=== PATIENT | male | born 1945 | race Caucasian/White ===

== ENCOUNTER 2019-07-06 16:23 | Emergency (ER) | payer MEDICARE, OTHER ==
[2019-07-06] MEDS ORDERED: Ciprofloxacin 500 MG Tab PO ONE (16:24)
[2019-07-06 17:16] VITALS: PULSE 80
[2019-07-06] MEDS: Lidocaine 2% Jelly 10 ML Urojet MUCMEM ONE (17:19)
[2019-07-06 18:03] LABS: ANION GAP 14.2
--- NOTE | 2019-07-06 18:03 | EDM.PDOC ---
Scribed by Kathi Carlisle 07/06/19 [id number] for Miguel Angel Arboleda PA ED HPI GENERAL MEDICAL PROBLEM - General Chief Complaint: Genitourinary Problem Stated Complaint: GENITOURINARY PROBLEM Time Seen by Provider: 07/06/19 17:05 Source of Information: Reports: Patient, RN, RN Notes Reviewed History Limitations: Reports: No Limitations - History of Present Illness INITIAL COMMENTS - FREE TEXT/NARRATIVE: Patient presents to ER with lower abdominal pain that started this A.M. with increased pressure. He has been unable to urinate today. 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 Numerous treatments after radiation to stop bladder and bowel blood loss. Onset: Today Duration: Constant Location: Reports: Other (bladder) Quality: Reports: Ache Severity: Moderate Improves with: Reports: None Worsens with: Reports: None Associated Symptoms: Reports: No Other Symptoms Bladder Pain Score (Numeric/FACES): 8 - Related Data Allergies Allergy/AdvReac Type Severity Reaction Status Date / Time amoxicillin Allergy Blisters Verified 07/06/19 17:09 Penicillins Allergy Blisters Verified 07/06/19 17:09 Home Meds: Home Meds Simvastatin 20 mg PO BEDTIME 02/19/16 [History] Ascorbic Acid [Vitamin C] 1,000 mg PO DAILY 06/08/18 [History] Calcium Carbonate [Calcium] 600 mg PO DAILY 06/08/18 [History] Calcium Carbonate/Vitamin D3 [Calcium 600 + Vit D 200] 600 tab PO BEDTIME [History] Cholecalciferol (Vitamin D3) [Vitamin D] 800 units PO DAILY 06/08/18 [History] Cranberry 4,200 mg PO DAILY 06/08/18 [History] Magnesium 500 mg PO DAILY 06/08/18 [History] Vitamin E 1,000 unit PO DAILY 06/08/18 [History] Acetaminophen 1,000 mg PO .PRN 07/02/18 [History] Hydrocodone/Acetaminophen [[place] 5-325 Tablet] 5 - 325 mg PO TID PRN 07/02/18 [ History] Sildenafil Citrate [Sildenafil] 100 mg PO .PRN PRN 07/02/18 [History] Opium/Belladonna Alkaloids [Belladonna-Opium 16.2-60 Supp] 1 each RC BID PRN # 30 supp.rect 03/09/19 [Rx] Cholecalciferol (Vitamin D3) [Vitamin D3] 5,000 units PO DAILY 07/06/19 [History ] Docusate Sodium 100 mg PO DAILY 07/06/19 [History] Enzalutamide [Xtandi] 160 mg PO DAILY 07/06/19 [History] Ferrous Gluconate [Fergon] 270 mg PO BID 07/06/19 [History] Sertraline [Zoloft] 50 mg PO DAILY 07/06/19 [History] Past Medical History HEENT History: Reports: Impaired Vision Other HEENT History: glasses Cardiovascular History: Reports: Hypertension Other Cardiovascular History: LVH Respiratory History: Reports: None Gastrointestinal History: Reports: Diverticulosis, Hemorrhoids Genitourinary History: Reports: Other (See Below) Other Genitourinary History: cyst on kidneys Musculoskeletal History: Reports: Other (See Below) Other Musculoskeletal History: HX OF R WRIST FRACTURE. Osseous metastasis, right pubic ramus. Neurological History: Reports: None Psychiatric History: Reports: Depression Endocrine/Metabolic History: Reports: None Hematologic History: Reports: None Immunologic History: Reports: None, Immunosuppression Oncologic (Cancer) History: Reports: Bone, Lymphoma, Metastatic, Other (See Below) Other Oncologic History: prostate cancer Dermatologic History: Reports: Other (See Below) Other Dermatologic History: over ears possible skin cancer - Infectious Disease History Infectious Disease History: Reports: Chicken Pox, Mumps - Past Surgical History Head Surgeries/Procedures: Reports: None HEENT Surgical History: Reports: None Other HEENT Surgeries/Procedures: central serrous retanopothy. Cardiovascular Surgical History: Reports: None Respiratory Surgical History: Reports: None GI Surgical History: Reports: Colonoscopy, Other (See Below) Other GI Surgeries/Procedures: ventral hernia Male Surgical History: Reports: Other (See Below) Other Male Surgeries/Procedures: orchiectomy. turp Neurological Surgical History: Reports: None Musculoskeletal Surgical History: Reports: None Oncologic Surgical History: Reports: None Social & Family History - Family History Family Medical History: Noncontributory - Tobacco Use Smoking Status *Q: Never Smoker - Caffeine Use Caffeine Use: Reports: Coffee Other Caffeine Use: 2 cups coffee /day. mountain dew - Recreational Drug Use Recreational Drug Use: No - Living Situation & Occupation Living situation: Reports: , with Spouse Occupation: Retired ED ROS GENERAL - Review of Systems Review Of Systems: Comprehensive ROS is negative, except as noted in HPI. ED EXAM, RENAL/ - Physical Exam Exam: See Below Exam Limited By: No Limitations General Appearance: Alert, WD/WN, No Apparent Distress Eye Exam: Bilateral Eye: EOMI, Normal Inspection, PERRL Ears: Normal External Exam, Normal Canal, Hearing Grossly Normal, Normal TMs Nose: Normal Inspection, Normal Mucosa, No Blood Throat/Mouth: Normal Inspection, Normal Lips, Normal Teeth, Normal Gums, Normal Oropharynx, Normal Voice, No Airway Compromise Head: Atraumatic, Normocephalic Neck: Normal Inspection, Supple, Non-Tender, Full Range of Motion Respiratory/Chest: No Respiratory Distress, Lungs Clear, Normal Breath Sounds, No Accessory Muscle Use, Chest Non-Tender Cardiovascular: Normal Peripheral Pulses, Regular Rate, Rhythm, No Edema, No Gallop, No JVD, No Murmur, No Rub GI/Abdominal: Other (relieved abdominal pain after catheter placed.) (Male) Exam: Deferred Rectal (Males) Exam: Deferred Back Exam: Normal Inspection, Full Range of Motion, NT Extremities: Normal Inspection, Normal Range of Motion, Non-Tender, Normal Capillary Refill, No Pedal Edema Neurological: Alert, Oriented, CN II-XII Intact, Normal Cognition, Normal Gait, Normal Reflexes, No Motor/Sensory Deficits Psychiatric: Normal Affect, Normal Mood Skin Exam: Warm, Dry, Intact, Normal Color, No Rash Lymphatic: No Adenopathy Course - Vital Signs Last Recorded V/S: Last Vital Signs Temp 36.4 C 07/06/19 17:09 Pulse 80 07/06/19 17:09 Resp 16 07/06/19 17:09 BP 127/65 07/06/19 18:15 Pulse Ox 97 07/06/19 17:09 - Orders/Labs/Meds Orders: Active Orders 24 hr Category Date Time Status CULTURE URINE [RM] Urgent Lab 07/06/19 17:00 Received Labs: Laboratory Tests 07/06/19 07/06/19 07/06/19 Range/Units 17:00 17:33 17:33 WBC 4.1 L (5.0-10.0) 10^3/uL RBC 2.65 L (4.6-6.2) 10^6/uL Hgb 8.7 L D (14.0-18.0) g/dL Hct 27.7 L (40.0-54.0) % MCV 104.5 H D (80-100) fL MCH 32.8 (27.0-34.0) pg MCHC 31.4 L (33.0-35.0) g/dL Plt Count 235 (150-450) 10^3/uL Neut % (Auto) 77.1 H (42.2-75.2) % Lymph % (Auto) 10.3 L (20.5-50.1) % [place] % (Auto) 9.1 H (2-8) % Eos % (Auto) 2.5 (1.0-3.0) % Baso % (Auto) 1.0 (0.0-1.0) % Sodium 139 (135-145) mmol/L Potassium 4.2 (3.6-5.0) mmol/L Chloride 106 (101-111) mmol/L Carbon Dioxide 23.0 (21.0-31.0) mmol/L Anion Gap 14.2 BUN 28 H (7-18) mg/dL Creatinine 1.3 (0.6-1.3) mg/dL Est Cr Clr Drug Dosing 52.12 mL/min Estimated GFR (MDRD) 54 BUN/Creatinine Ratio 21.53 Glucose 96 (74-105) mg/dL Calcium 9.1 (8.4-10.2) mg/dl Total Bilirubin 0.5 (0.2-1.0) mg/dL AST 19 (10-42) IU/L ALT 13 (10-60) IU/L Alkaline Phosphatase 46 (42-121) IU/L B-Natriuretic Peptide 53 (0-100) pg/ml Total Protein 6.7 (6.7-8.2) g/dl Albumin 3.8 (3.2-5.5) g/dl Globulin 2.9 Albumin/Globulin Ratio 1.31 Urine Color Red (YELLOW) Urine Appearance Turbid (CLEAR) Urine pH 5.5 (5.0-9.0) Ur Specific [place] 1.020 (1.005-1.030) Urine Protein >=300 H (NEGATIVE) Urine Glucose (UA) Negative (NEGATIVE) Urine Ketones 15 H (NEGATIVE) Urine Occult Blood Large H (NEGATIVE) Urine Nitrite Negative (NEGATIVE) Urine Bilirubin Large H (NEGATIVE) Urine Urobilinogen 4.0 H (0.2-1.0) mg/dL Ur Leukocyte Esterase Large H (NEGATIVE) Urine RBC Packed H /HPF Urine WBC Not seen (0-5/HPF) /HPF Ur Epithelial Cells Rare (NOT SEEN) /HPF Urine Bacteria Few (0-FEW/HPF) /HPF Meds: Medications Discontinued Medications Generic Name Dose Route Start Last Admin Trade Name Erin PRN Reason Stop Dose Admin Ciprofloxacin 500 mg 07/06/19 18:23 Ciprofloxacin Hcl PO 07/06/19 18:24 ONETIME ONE Lidocaine HCl 10 ml 07/06/19 16:38 07/06/19 17:19 Xylocaine 2% Jelly MUCMEM 07/06/19 16:39 10 ml ONETIME ONE Administration Departure - Departure Time of Disposition: 18:30 Disposition: Home, Self-Care 01 Clinical Impression: UTI, Urinary tract infectious disease, Urinary (tract) obstruction - Discharge Information *PRESCRIPTION DRUG MONITORING PROGRAM REVIEWED*: Not Applicable *COPY OF PRESCRIPTION DRUG MONITORING REPORT IN PATIENT JALIL: Not Applicable Instructions: Urinary Tract Infection, Adult, [id number] Forms: ED Department Discharge Care Plan Goals: The patient was advised of the examination and lab results during the visit. A catheter was placed while the patient was in the ED. The patient should keep the catheter in place for the next 24 hours. The patient was given an oral dose of Cipro while in the ED. The patient was discharged with a dose of Cipro (500 mg) to take 1 by mouth in the morning and a script for Cipro (500 mg) #10 to take 1 by mouth 2 times per day. If the patient has any additional symptoms or concerns, the patient should follow-up with her primary care facility or return to the emergency department. Sepsis Event Note - Evaluation Sepsis Screening Result: No Definite Risk - Focused Exam Vital Signs: Vital Signs Temp Pulse Resp BP Pulse Ox 07/06/19 18:15 127/65 07/06/19 17:09 36.4 C 80 16 132/66 97 Date Exam was Performed: 07/06/19 Time Exam was Performed: 18:26 - My Orders Last 24 Hours: My Active Orders 07/06/19 17:00 CULTURE URINE [RM] Urgent - Assessment/Plan Last 24 Hours: My Active Orders 07/06/19 17:00 CULTURE URINE [RM] Urgent I have read and agree with the documentation that has been completed regarding this visit. By signing this record, I attest that the documentation was completed in my physical presence and is an accurate record of the encounter.
[2019-07-06 18:16] VITALS: BP 127/65
[2019-07-06] MEDS: Ciprofloxacin 500 MG Tab ONE (18:52)
[2019-07-06] MEDS: Ciprofloxacin 500 MG Tab PO ONE (18:53)
== END 2019-07-06 18:55 | disposition home or self-care (01) ==
LOC: DL.ED 16:23
DX: N39.0 Urinary tract infection, site not specified (principal); N13.9 Obstructive and reflux uropathy, unspecified; I10 Essential (primary) hypertension; F32.9 Major depressive disorder, single episode, unspecified; Z88.1 Allergy status to other antibiotic agents; Z88.0 Allergy status to penicillin; Z79.899 Other long term (current) drug therapy
CPT/HCPCS: 36415; 51700; 51798; 80053; 81001; 83880; 85025; 87086; 99284; A9270

== ENCOUNTER 2019-07-07 06:18 | Emergency (ER) | payer MEDICARE, OTHER ==
[2019-07-07] MEDS ORDERED: Lidocaine 2% Jelly 10 ML Urojet MUCMEM ONE (06:28)
[2019-07-07 06:32] VITALS: BP 135/83; PULSE 71
--- NOTE | 2019-07-07 06:45 | EDM.PDOC ---
ED HPI GENERAL MEDICAL PROBLEM - General Stated Complaint: CANT PEE Time Seen by Provider: 07/07/19 06:43 Source of Information: Reports: Patient History Limitations: Reports: No Limitations - History of Present Illness INITIAL COMMENTS - FREE TEXT/NARRATIVE: was here yesterday for same, unable to urinate. - Related Data Allergies Allergy/AdvReac Type Severity Reaction Status Date / Time amoxicillin Allergy Blisters Verified 07/07/19 07:02 Penicillins Allergy Blisters Verified 07/07/19 07:02 Home Meds: Home Meds Simvastatin 20 mg PO BEDTIME 02/19/16 [History] Ascorbic Acid [Vitamin C] 1,000 mg PO DAILY 06/08/18 [History] Calcium Carbonate [Calcium] 600 mg PO DAILY 06/08/18 [History] Calcium Carbonate/Vitamin D3 [Calcium 600 + Vit D 200] 600 tab PO BEDTIME [History] Cholecalciferol (Vitamin D3) [Vitamin D] 800 units PO DAILY 06/08/18 [History] Cranberry 4,200 mg PO DAILY 06/08/18 [History] Magnesium 500 mg PO DAILY 06/08/18 [History] Vitamin E 1,000 unit PO DAILY 06/08/18 [History] Acetaminophen 1,000 mg PO .PRN 07/02/18 [History] Hydrocodone/Acetaminophen [[place] 5-325 Tablet] 5 - 325 mg PO TID PRN 07/02/18 [ History] Sildenafil Citrate [Sildenafil] 100 mg PO .PRN PRN 07/02/18 [History] Opium/Belladonna Alkaloids [Belladonna-Opium 16.2-60 Supp] 1 each RC BID PRN # 30 supp.rect 03/09/19 [Rx] Cholecalciferol (Vitamin D3) [Vitamin D3] 5,000 units PO DAILY 07/06/19 [History ] Docusate Sodium 100 mg PO DAILY 07/06/19 [History] Enzalutamide [Xtandi] 160 mg PO DAILY 07/06/19 [History] Ferrous Gluconate [Fergon] 270 mg PO BID 07/06/19 [History] Sertraline [Zoloft] 50 mg PO DAILY 07/06/19 [History] Past Medical History HEENT History: Reports: Impaired Vision Other HEENT History: glasses Cardiovascular History: Reports: Hypertension Other Cardiovascular History: LVH Respiratory History: Reports: None Gastrointestinal History: Reports: Diverticulosis, Hemorrhoids Genitourinary History: Reports: Other (See Below) Other Genitourinary History: cyst on kidneys Musculoskeletal History: Reports: Other (See Below) Other Musculoskeletal History: HX OF R WRIST FRACTURE. Osseous metastasis, right pubic ramus. Neurological History: Reports: None Psychiatric History: Reports: Depression Endocrine/Metabolic History: Reports: None Hematologic History: Reports: None Immunologic History: Reports: None, Immunosuppression Oncologic (Cancer) History: Reports: Bone, Lymphoma, Metastatic, Other (See Below) Other Oncologic History: prostate cancer Dermatologic History: Reports: Other (See Below) Other Dermatologic History: over ears possible skin cancer - Infectious Disease History Infectious Disease History: Reports: Chicken Pox, Mumps - Past Surgical History Head Surgeries/Procedures: Reports: None HEENT Surgical History: Reports: None Other HEENT Surgeries/Procedures: central serrous retanopothy. Cardiovascular Surgical History: Reports: None Respiratory Surgical History: Reports: None GI Surgical History: Reports: Colonoscopy, Other (See Below) Other GI Surgeries/Procedures: ventral hernia Male Surgical History: Reports: Other (See Below) Other Male Surgeries/Procedures: orchiectomy. turp Neurological Surgical History: Reports: None Musculoskeletal Surgical History: Reports: None Oncologic Surgical History: Reports: None Social & Family History - Family History Family Medical History: Noncontributory - Caffeine Use Caffeine Use: Reports: Coffee Other Caffeine Use: 2 cups coffee /day. [facility] - Living Situation & Occupation Living situation: Reports: , with Spouse Occupation: Retired ED ROS GENERAL - Review of Systems Review Of Systems: Comprehensive ROS is negative, except as noted in HPI. ED EXAM, RENAL/ - Physical Exam Exam: See Below Exam Limited By: No Limitations General Appearance: Alert, WD/WN, Mild Distress, Other (discomfort). No: Active Emesis Ears: Hearing Grossly Normal Throat/Mouth: Normal Voice, No Airway Compromise Head: Atraumatic Neck: Non-Tender, Full Range of Motion Respiratory/Chest: No Respiratory Distress Cardiovascular: Regular Rate, Rhythm GI/Abdominal: Soft, Other (suprapubic discomfort) Neurological: Alert, Oriented, Normal Cognition, No Motor/Sensory Deficits, Confused Psychiatric: Tearful Skin Exam: Warm, Dry, Normal Color Lymphatic: No Adenopathy Course - Vital Signs Last Recorded V/S: Last Vital Signs Temp 36.6 C 07/07/19 06:30 Pulse 71 07/07/19 06:30 Resp 16 07/07/19 06:30 BP 135/83 07/07/19 06:30 Pulse Ox 97 07/07/19 06:30 - Orders/Labs/Meds Meds: Medications Discontinued Medications Generic Name Dose Route Start Last Admin Trade Name Erin PRN Reason Stop Dose Admin Lidocaine HCl 10 ml 07/07/19 06:28 Xylocaine 2% Jelly MUCMEM 07/07/19 06:29 ONETIME ONE Departure - Departure Time of Disposition: 07:09 Disposition: Home, Self-Care 01 Condition: Good Clinical Impression: Urinary (tract) obstruction, Retention of urine - Discharge Information Forms: ED Department Discharge Additional Instructions: rx given; percocet 5/325mg qid x 12 Sepsis Event Note - Evaluation Sepsis Screening Result: No Definite Risk - Focused Exam Vital Signs: Vital Signs Temp Pulse Resp BP Pulse Ox 07/07/19 06:30 36.6 C 71 16 135/83 97 Date Exam was Performed: 07/07/19 Time Exam was Performed: 07:09
== END 2019-07-07 07:22 | disposition home or self-care (01) ==
LOC: DL.ED 06:18
DX: R33.9 Retention of urine, unspecified (principal); N13.8 Other obstructive and reflux uropathy; I10 Essential (primary) hypertension; F32.9 Major depressive disorder, single episode, unspecified; Z88.0 Allergy status to penicillin; Z79.899 Other long term (current) drug therapy; Z85.79 Personal history of other malignant neoplasms of lymphoid, hematopoietic and related tissues; Z85.830 Personal history of malignant neoplasm of bone
CPT/HCPCS: 51702; 99283-25

== ENCOUNTER 2020-01-18 05:58 | Emergency (ER) | payer MEDICARE, OTHER ==
[2020-01-18] MEDS ORDERED: Ciprofloxacin 500 MG Tab PO ONE (05:59)
[2020-01-18] MEDS ORDERED: Lidocaine 2% Jelly 10 ML Urojet MUCMEM ONE (06:03)
[2020-01-18 06:09] VITALS: BP 151/78; PULSE 67
[2020-01-18 06:48] LABS: ANION GAP 12.2 mEq/L (7-13)
--- NOTE | 2020-01-18 06:53 | EDM.PDOC ---
ED HPI GENERAL MEDICAL PROBLEM - General Chief Complaint: Genitourinary Problem Stated Complaint: UNABLE TO PEE Time Seen by Provider: 01/18/20 06:15 Source of Information: Reports: Patient, RN History Limitations: Reports: No Limitations - History of Present Illness INITIAL COMMENTS - FREE TEXT/NARRATIVE: ED with report of unable to void since 10pm last martha. Feel surge. Hx prostate CA with radiation. Has had catheters numerous times since surgery. Denies fever or chills. Chronic incontinence since radiation. Noticed blood in last week but has improved but not completely resolved. Nonausea or vomiting. Has required indwelling catheter for a couple of days. - Related Data Allergies Allergy/AdvReac Type Severity Reaction Status Date / Time amoxicillin Allergy Blisters Verified 01/18/20 06:03 Penicillins Allergy Blisters Verified 01/18/20 06:03 Home Meds: Home Meds Simvastatin 20 mg PO BEDTIME 02/19/16 [History] Ascorbic Acid [Vitamin C] 1,000 mg PO DAILY 06/08/18 [History] Calcium Carbonate [Calcium] 600 mg PO DAILY 06/08/18 [History] Calcium Carbonate/Vitamin D3 [Calcium 600 + Vit D 200] 600 tab PO BEDTIME 06/08/18 [History] Cholecalciferol (Vitamin D3) [Vitamin D] 800 units PO DAILY 06/08/18 [History] Cranberry 4,200 mg PO DAILY 06/08/18 [History] Magnesium 500 mg PO DAILY 06/08/18 [History] Vitamin E 1,000 unit PO DAILY 06/08/18 [History] Acetaminophen 1,000 mg PO .PRN 07/02/18 [History] Hydrocodone/Acetaminophen [[place] 5-325 Tablet] 5 - 325 mg PO TID PRN 07/02/18 [History] Sildenafil Citrate [Sildenafil] 100 mg PO .PRN PRN 07/02/18 [History] Opium/Belladonna Alkaloids [Belladonna-Opium 16.2-60 Supp] 1 each RC BID PRN #30 supp.rect 03/09/19 [Rx] Cholecalciferol (Vitamin D3) [Vitamin D3] 5,000 units PO DAILY 07/06/19 [History] Docusate Sodium 100 mg PO DAILY 07/06/19 [History] Enzalutamide [Xtandi] 160 mg PO DAILY 07/06/19 [History] Ferrous Gluconate [Fergon] 270 mg PO BID 07/06/19 [History] Sertraline [Zoloft] 50 mg PO DAILY 07/06/19 [History] Past Medical History HEENT History: Reports: Impaired Vision Other HEENT History: glasses Cardiovascular History: Reports: Hypertension Other Cardiovascular History: LVH Respiratory History: Reports: None Gastrointestinal History: Reports: Diverticulosis, Hemorrhoids Genitourinary History: Reports: Other (See Below) Other Genitourinary History: cyst on kidneys Musculoskeletal History: Reports: Other (See Below) Other Musculoskeletal History: HX OF R WRIST FRACTURE. Osseous metastasis, right pubic ramus. Neurological History: Reports: None Psychiatric History: Reports: Depression Endocrine/Metabolic History: Reports: None Hematologic History: Reports: None Immunologic History: Reports: None, Immunosuppression Oncologic (Cancer) History: Reports: Bone, Lymphoma, Metastatic, Other (See Below) Other Oncologic History: prostate cancer Dermatologic History: Reports: Other (See Below) Other Dermatologic History: over ears possible skin cancer - Infectious Disease History Infectious Disease History: Reports: Chicken Pox, Mumps - Past Surgical History Head Surgeries/Procedures: Reports: None HEENT Surgical History: Reports: None Other HEENT Surgeries/Procedures: central serrous retanopothy. Cardiovascular Surgical History: Reports: None Respiratory Surgical History: Reports: None GI Surgical History: Reports: Colonoscopy, Other (See Below) Other GI Surgeries/Procedures: ventral hernia Male Surgical History: Reports: Other (See Below) Other Male Surgeries/Procedures: orchiectomy. turp Neurological Surgical History: Reports: None Musculoskeletal Surgical History: Reports: None Oncologic Surgical History: Reports: None Social & Family History - Family History Family Medical History: Noncontributory - Tobacco Use Smoking Status *Q: Never Smoker Second Hand Smoke Exposure: No - Caffeine Use Caffeine Use: Reports: Coffee Other Caffeine Use: 2 cups coffee /day. mountain dew - Recreational Drug Use Recreational Drug Use: No - Living Situation & Occupation Living situation: Reports: , with Spouse Occupation: Retired ED ROS GENERAL - Review of Systems Review Of Systems: Comprehensive ROS is negative, except as noted in HPI. ED EXAM, RENAL/ - Physical Exam Exam: See Below Exam Limited By: No Limitations General Appearance: Alert, Mild Distress Eye Exam: Bilateral Eye: EOMI Ears: Normal External Exam Nose: Normal Inspection Throat/Mouth: Normal Inspection, Normal Oropharynx Head: Atraumatic, Normocephalic Neck: Normal Inspection Respiratory/Chest: No Respiratory Distress, Lungs Clear Cardiovascular: Regular Rate, Rhythm GI/Abdominal: Soft, Non-Tender, No Organomegaly, No Distention, No Abnormal Bruit Back Exam: Normal Inspection Extremities: Normal Inspection Neurological: Alert, Oriented Psychiatric: Normal Affect Skin Exam: Warm, Dry, Intact Course - Vital Signs Last Recorded V/S: Last Vital Signs Temp 97.4 F 01/18/20 06:05 Pulse 67 01/18/20 06:05 Resp 16 01/18/20 06:05 BP 151/78 H 01/18/20 06:05 Pulse Ox 97 01/18/20 06:05 - Orders/Labs/Meds Labs: Laboratory Tests 01/18/20 01/18/20 01/18/20 Range/Units 06:23 06:23 06:40 WBC 2.8 L (5.0-10.0) 10^3/uL RBC 3.18 L (4.6-6.2) 10^6/uL Hgb 10.2 L D (14.0-18.0) g/dL Hct 32.2 L (40.0-54.0) % MCV 101.3 H D (80-100) fL MCH 32.1 (27.0-34.0) pg MCHC 31.7 L (33.0-35.0) g/dL Plt Count 238 (150-450) 10^3/uL Neut % (Auto) 66.0 (42.2-75.2) % Lymph % (Auto) 17.0 L (20.5-50.1) % [place] % (Auto) 11.3 H (2-8) % Eos % (Auto) 5.3 H (1.0-3.0) % Baso % (Auto) 0.4 (0.0-1.0) % Sodium 141 (136-145) mmol/L Potassium 4.2 (3.5-5.1) mmol/L Chloride 107 (98-107) mmol/L Carbon Dioxide 26 (21-32) mmol/L Anion Gap 12.2 (7-13) mEq/L BUN 29 H (7-18) mg/dL Creatinine 1.42 H (0.70-1.30) mg/dL Est Cr Clr Drug Dosing 47.02 mL/min Estimated GFR (MDRD) 49 BUN/Creatinine Ratio 20.4 (No establ ref range) Glucose 102 H (74-99) mg/dL Calcium 8.9 (8.5-10.1) mg/dL Total Bilirubin 0.3 (0.2-1.0) mg/dL AST 15 (15-37) U/L ALT 19 (16-63) U/L Alkaline Phosphatase 53 (46-116) U/L Total Protein 6.6 (6.4-8.2) g/dL Albumin 3.3 L (3.4-5.0) g/dL Globulin 3.3 Albumin/Globulin Ratio 1.00 Urine Color Yellow (YELLOW) Urine Appearance Slightly cloudy (CLEAR) Urine pH 5.5 (5.0-9.0) Ur Specific [place] >= 1.030 (1.005-1.030) Urine Protein 100 H (NEGATIVE) Urine Glucose (UA) Negative (NEGATIVE) Urine Ketones Negative (NEGATIVE) Urine Occult Blood Small H (NEGATIVE) Urine Nitrite Negative (NEGATIVE) Urine Bilirubin Negative (NEGATIVE) Urine Urobilinogen 0.2 (0.2-1.0) mg/dL Ur Leukocyte Esterase Negative (NEGATIVE) U Hyaline Cast (Auto) Occasional Urine RBC 30-40 H /HPF Urine WBC 0-5 (0-5/HPF) /HPF Ur Epithelial Cells Rare (NOT SEEN) /HPF Amorphous Sediment Few (NOT SEEN) /HPF Urine Bacteria Few (0-FEW/HPF) /HPF Urine Mucus Few H (NOT SEEN) /LPF Meds: Medications Discontinued Medications Generic Name Dose Route Start Last Admin Trade Name Erin PRN Reason Stop Dose Admin Ciprofloxacin Confirm 01/18/20 07:07 Ciprofloxacin Hcl Administered 01/18/20 07:08 Dose 1,500 mg .ROUTE .STK-MED ONE Lidocaine HCl 10 ml 01/18/20 06:03 01/18/20 06:20 Xylocaine 2% Jelly MUCMEM 01/18/20 06:04 10 ml ONETIME ONE Administration - Re-Assessments/Exams Free Text/Narrative Re-Assessment/Exam: 01/20/20 11:57 Sanchez placed without difficulty by RN. Concentrated urine. Departure - Departure Time of Disposition: 06:58 Disposition: Home, Self-Care 01 Condition: Good Clinical Impression: Urinary retention - Discharge Information *PRESCRIPTION DRUG MONITORING PROGRAM REVIEWED*: No *COPY OF PRESCRIPTION DRUG MONITORING REPORT IN PATIENT JALIL: No Instructions: Indwelling Urinary Catheter Care, Adult Forms: ED Department Discharge Additional Instructions: increase fluids irrigate catheter as needed cipro 500mg twice daily for one week follow up with urologist next week return if fever, chills back pain Sepsis Event Note (ED) - Evaluation Sepsis Screening Result: No Definite Risk
[2020-01-18] MEDS ORDERED: Ciprofloxacin 500 MG Tab ONE (07:07)
== END 2020-01-18 07:20 | disposition home or self-care (01) ==
LOC: DL.ED 05:58
DX: R33.9 Retention of urine, unspecified (principal); I10 Essential (primary) hypertension; Z88.1 Allergy status to other antibiotic agents; Z88.0 Allergy status to penicillin; Z79.899 Other long term (current) drug therapy
CPT/HCPCS: 36415; 51702; 80053; 81001; 85025; 99283; A9270

== ENCOUNTER 2020-06-01 21:23 | Emergency (ER) | payer MEDICARE, OTHER ==
[2020-06-01 21:53] VITALS: BP 121/60; PULSE 90
[2020-06-01 23:59] LABS: CHLORIDE,CL 99 mmol/L (98-107); SODIUM,NA 136 mmol/L (136-145)
[2020-06-02] MEDS ORDERED: Ciprofloxacin 500 MG Tab PO ONE (00:46)
--- NOTE | 2020-06-02 01:00 | EDM.PDOC ---
ED HPI GENERAL MEDICAL PROBLEM - General Chief Complaint: General Stated Complaint: FLU SYMPTOMS Time Seen by Provider: 06/01/20 21:40 Source of Information: Reports: Patient, Family, RN History Limitations: Reports: No Limitations - History of Present Illness INITIAL COMMENTS - FREE TEXT/NARRATIVE: ED with c/o malaise, low grade fevers past week. Hx prostate CA with radiation, Recent ereral stent removed last week. Urine initially bloody with thick [place], clearing now. Utilizing condom cath. Appetite poor. Nausea tonight no vomiting. Did take one zofran at home and nausea improved. Has not been seen by PCP. Renal US scheduled Monday then see specialist on Monday for decreased renal function. Concern for COVID, No known exposure. estimates 20# weight loss in past 2 months. - Related Data Allergies Allergy/AdvReac Type Severity Reaction Status Date / Time amoxicillin Allergy Blisters Verified 01/18/20 06:03 Penicillins Allergy Blisters Verified 01/18/20 06:03 Home Meds: Home Meds Simvastatin 20 mg PO BEDTIME 02/19/16 [History] Ascorbic Acid [Vitamin C] 1,000 mg PO DAILY 06/08/18 [History] Calcium Carbonate [Calcium] 600 mg PO DAILY 06/08/18 [History] Calcium Carbonate/Vitamin D3 [Calcium 600 + Vit D 200] 600 tab PO BEDTIME 06/08/18 [History] Cholecalciferol (Vitamin D3) [Vitamin D] 800 units PO BEDTIME 06/08/18 [History] Cranberry 4,200 mg PO BEDTIME 06/08/18 [History] Magnesium 500 mg PO DAILY 06/08/18 [History] Vitamin E 1,000 unit PO DAILY 06/08/18 [History] Acetaminophen 500 mg PO Q4H PRN 07/02/18 [History] Cholecalciferol (Vitamin D3) [Vitamin D3] 5,000 units PO DAILY 07/06/19 [History] Docusate Sodium 100 mg PO DAILY 07/06/19 [History] Enzalutamide [Xtandi] 160 mg PO BEDTIME 07/06/19 [History] Ferrous Gluconate [Fergon] 324 mg PO DAILY 07/06/19 [History] Sertraline [Zoloft] 75 mg PO DAILY 07/06/19 [History] Denosumab [Xgeva] 120 mg SUBCUT .MONTHLY 01/21/20 [History] Ibuprofen 200 mg PO Q6H PRN 01/21/20 [History] Past Medical History HEENT History: Reports: Impaired Vision Other HEENT History: glasses Cardiovascular History: Reports: Hypertension Other Cardiovascular History: LVH Respiratory History: Reports: None Gastrointestinal History: Reports: Diverticulosis, Hemorrhoids Genitourinary History: Reports: Other (See Below) Other Genitourinary History: cyst on kidneys Musculoskeletal History: Reports: Other (See Below) Other Musculoskeletal History: HX OF R WRIST FRACTURE. Osseous metastasis, right pubic ramus. Neurological History: Reports: None Psychiatric History: Reports: Depression Endocrine/Metabolic History: Reports: None Hematologic History: Reports: None Immunologic History: Reports: Immunosuppression Oncologic (Cancer) History: Reports: Bone, Lymphoma, Metastatic, Other (See Below) Other Oncologic History: prostate cancer Dermatologic History: Reports: Other (See Below) Other Dermatologic History: over ears possible skin cancer - Infectious Disease History Infectious Disease History: Reports: Chicken Pox, Mumps - Past Surgical History Head Surgeries/Procedures: Reports: None HEENT Surgical History: Reports: None Other HEENT Surgeries/Procedures: central serrous retanopothy. Cardiovascular Surgical History: Reports: None Respiratory Surgical History: Reports: None GI Surgical History: Reports: Colonoscopy, Other (See Below) Other GI Surgeries/Procedures: ventral hernia Male Surgical History: Reports: Ureteral Stent, Other (See Below) Other Male Surgeries/Procedures: orchiectomy. turp Neurological Surgical History: Reports: None Musculoskeletal Surgical History: Reports: None Oncologic Surgical History: Reports: None Social & Family History - Family History Family Medical History: No Pertinent Family History - Tobacco Use Tobacco Use Status *Q: Never Tobacco User Second Hand Smoke Exposure: No - Caffeine Use Caffeine Use: Reports: Coffee Other Caffeine Use: 2 cups coffee /day. mountain dew - Recreational Drug Use Recreational Drug Use: No - Living Situation & Occupation Living situation: Reports: , with Spouse Occupation: Retired ED ROS GENERAL - Review of Systems Review Of Systems: Comprehensive ROS is negative, except as noted in HPI. ED EXAM, GENERAL - Physical Exam Exam: See Below Exam Limited By: No Limitations General Appearance: Alert, No Apparent Distress Eye Exam: Bilateral Eye: EOMI Ears: Normal External Exam, Hearing Grossly Normal Nose: Normal Inspection Throat/Mouth: Normal Inspection Head: Atraumatic, Normocephalic Neck: Normal Inspection Respiratory/Chest: No Respiratory Distress, Lungs Clear, Normal Breath Sounds Cardiovascular: Normal Peripheral Pulses, Regular Rate, Rhythm GI/Abdominal: Normal Bowel Sounds, Soft. No: Distended, Guarding, Tender Back Exam: No: CVA Tenderness (L), CVA Tenderness (R) Extremities: Normal Inspection Neurological: Alert, Oriented, Normal Cognition Psychiatric: Normal Affect, Normal Mood Skin Exam: Warm, Dry, Intact, Pallor Course - Vital Signs Last Recorded V/S: Last Vital Signs Temp 97.5 F 06/01/20 21:35 Pulse 90 06/01/20 21:35 Resp 18 06/01/20 21:35 BP 121/60 06/01/20 21:35 Pulse Ox 96 06/01/20 21:35 Orthostatic Blood Pressure [ 131/74 Standing] Orthostatic Blood Pressure [ 116/71 Sitting] Orthostatic Blood Pressure [ 118/64 Supine] - Orders/Labs/Meds Orders: Active Orders 24 hr Category Date Time Status CULTURE URINE [RM] Routine Lab 06/01/20 23:03 Received Isolation [COMM] Routine Oth 06/01/20 21:40 Active Labs: Laboratory Tests 06/01/20 06/01/20 06/01/20 Range/Units 21:50 23:03 23:22 WBC 12.9 H (5.0-10.0) 10^3/uL RBC 3.10 L (4.6-6.2) 10^6/uL Hgb 10.3 L (14.0-18.0) g/dL Hct 30.8 L (40.0-54.0) % MCV 99.4 (80-100) fL MCH 33.2 (27.0-34.0) pg MCHC 33.4 (33.0-35.0) g/dL Plt Count 328 D (150-450) 10^3/uL Neut % (Auto) 93.7 H (42.2-75.2) % Lymph % (Auto) 2.0 L (20.5-50.1) % [place] % (Auto) 4.0 (2-8) % Eos % (Auto) 0.2 L (1.0-3.0) % Baso % (Auto) 0.1 (0.0-1.0) % Sodium (136-145) mmol/L Potassium (3.5-5.1) mmol/L Chloride (98-107) mmol/L Carbon Dioxide (21-32) mmol/L Anion Gap (7-13) mEq/L BUN (7-18) mg/dL Creatinine (0.70-1.30) mg/dL Est Cr Clr Drug Dosing Estimated GFR (MDRD) BUN/Creatinine Ratio (No establ ref range) Glucose (74-99) mg/dL Lactic Acid (0.4-2.0) mmol/L Calcium (8.5-10.1) mg/dL Total Bilirubin (0.2-1.0) mg/dL AST (15-37) U/L ALT (16-63) U/L Alkaline Phosphatase (46-116) U/L C-Reactive Protein (0.0-0.9) mg/dL Total Protein (6.4-8.2) g/dL Albumin (3.4-5.0) g/dL Globulin Albumin/Globulin Ratio Urine Color Felipa (YELLOW) Urine Appearance Cloudy (CLEAR) Urine pH 7.0 (5.0-9.0) Ur Specific [place] 1.025 (1.005-1.030) Urine Protein >=300 H (NEGATIVE) Urine Glucose (UA) Negative (NEGATIVE) Urine Ketones Negative (NEGATIVE) Urine Occult Blood Large H (NEGATIVE) Urine Nitrite Negative (NEGATIVE) Urine Bilirubin Negative (NEGATIVE) Urine Urobilinogen 0.2 (0.2-1.0) mg/dL Ur Leukocyte Esterase Trace H (NEGATIVE) Urine RBC >100 H /HPF Urine WBC 10-20 H (0-5/HPF) /HPF Ur Epithelial Cells Few (NOT SEEN) /HPF Amorphous Sediment Few (NOT SEEN) /HPF Urine Bacteria Few (0-FEW/HPF) /HPF Fine Granular Casts Rare H (NOT SEEN) /LPF Urine Mucus Few H (NOT SEEN) /LPF SARS CoV-2 RNA Rapid NIRALI Negative (NEGATIVE) 06/01/20 06/01/20 Range/Units 23:22 23:22 WBC (5.0-10.0) 10^3/uL RBC (4.6-6.2) 10^6/uL Hgb (14.0-18.0) g/dL Hct (40.0-54.0) % MCV (80-100) fL MCH (27.0-34.0) pg MCHC (33.0-35.0) g/dL Plt Count (150-450) 10^3/uL Neut % (Auto) (42.2-75.2) % Lymph % (Auto) (20.5-50.1) % [place] % (Auto) (2-8) % Eos % (Auto) (1.0-3.0) % Baso % (Auto) (0.0-1.0) % Sodium 136 (136-145) mmol/L Potassium 5.0 (3.5-5.1) mmol/L Chloride 99 (98-107) mmol/L Carbon Dioxide 29 (21-32) mmol/L Anion Gap 13.0 (7-13) mEq/L BUN 28 H (7-18) mg/dL Creatinine 1.62 H (0.70-1.30) mg/dL Est Cr Clr Drug Dosing TNP Estimated GFR (MDRD) 42 BUN/Creatinine Ratio 17.3 (No establ ref range) Glucose 126 H (74-99) mg/dL Lactic Acid 1.0 (0.4-2.0) mmol/L Calcium 9.1 (8.5-10.1) mg/dL Total Bilirubin 0.4 (0.2-1.0) mg/dL AST 11 L (15-37) U/L ALT 16 (16-63) U/L Alkaline Phosphatase 73 (46-116) U/L C-Reactive Protein 31.6 H (0.0-0.9) mg/dL Total Protein 7.4 (6.4-8.2) g/dL Albumin 2.7 L (3.4-5.0) g/dL Globulin 4.7 Albumin/Globulin Ratio 0.57 Urine Color (YELLOW) Urine Appearance (CLEAR) Urine pH (5.0-9.0) Ur Specific [place] (1.005-1.030) Urine Protein (NEGATIVE) Urine Glucose (UA) (NEGATIVE) Urine Ketones (NEGATIVE) Urine Occult Blood (NEGATIVE) Urine Nitrite (NEGATIVE) Urine Bilirubin (NEGATIVE) Urine Urobilinogen (0.2-1.0) mg/dL Ur Leukocyte Esterase (NEGATIVE) Urine RBC /HPF Urine WBC (0-5/HPF) /HPF Ur Epithelial Cells (NOT SEEN) /HPF Amorphous Sediment (NOT SEEN) /HPF Urine Bacteria (0-FEW/HPF) /HPF Fine Granular Casts (NOT SEEN) /LPF Urine Mucus (NOT SEEN) /LPF SARS CoV-2 RNA Rapid NIRALI (NEGATIVE) Meds: Medications Discontinued Medications Generic Name Dose Route Start Last Admin Trade Name Erin PRN Reason Stop Dose Admin Ciprofloxacin 500 mg 06/02/20 00:46 06/02/20 00:52 Ciprofloxacin Hcl PO 06/02/20 00:47 500 mg ONETIME ONE Administration Departure - Departure Time of Disposition: 00:48 Disposition: Home, Self-Care 01 Condition: Good Clinical Impression: UTI, Urinary tract infectious disease - Discharge Information *PRESCRIPTION DRUG MONITORING PROGRAM REVIEWED*: No *COPY OF PRESCRIPTION DRUG MONITORING REPORT IN PATIENT JALIL: No Instructions: Urinary Tract Infection, Adult, [id number] Forms: ED Department Discharge Additional Instructions: cipro 500mg one twice daily increase fluids zofran 4mg ODT every 4 hours as needed for nausea monitor temp tylenol 650mg every 4 hours as needed smaller meals more frequently protein supplements/ calorie boosters Follow up clinic on Monday, sooner if symptoms worsen Sepsis Event Note (ED) - Evaluation Sepsis Screening Result: No Definite Risk - Focused Exam Vital Signs: Vital Signs Temp Pulse Resp BP Pulse Ox 06/01/20 21:35 97.5 F 90 18 121/60 96 - My Orders Last 24 Hours: My Active Orders 06/01/20 21:40 Isolation [COMM] Routine 06/01/20 23:03 CULTURE URINE [RM] Routine - Assessment/Plan Last 24 Hours: My Active Orders 06/01/20 21:40 Isolation [COMM] Routine 06/01/20 23:03 CULTURE URINE [RM] Routine
== END 2020-06-02 00:55 | disposition home or self-care (01) ==
LOC: DL.ED 21:23
DX: N39.0 Urinary tract infection, site not specified (principal); I10 Essential (primary) hypertension; F32.9 Major depressive disorder, single episode, unspecified; Z20.828 Contact with and (suspected) exposure to other viral communicable diseases; Z88.1 Allergy status to other antibiotic agents; Z88.0 Allergy status to penicillin; Z79.899 Other long term (current) drug therapy
CPT/HCPCS: 36415; 80053; 81001; 83605; 85025; 86140; 87086; 87088; 87186; 87804; 99283; A9270; U0002

== ENCOUNTER 2020-08-01 17:07 | Emergency (ER) | payer MEDICARE, OTHER ==
[2020-08-01 18:01] VITALS: BP 170/94; PULSE 76
--- NOTE | 2020-08-01 18:44 | EDM.PDOC ---
<Aleksandr Herzog - Last Filed: 08/01/20 18:51> ED HPI GENERAL MEDICAL PROBLEM - General Chief Complaint: Genitourinary Problem Stated Complaint: UNABLE TO URINATE Time Seen by Provider: 08/01/20 18:37 Source of Information: Reports: Patient, Family, RN History Limitations: Reports: No Limitations - History of Present Illness INITIAL COMMENTS - FREE TEXT/NARRATIVE: 74 y/o M hx of prostate cancer c/o difficulty with urination. Pt states 2 days ago he started passing blood clots and having decreased urine output. Pt c/o supra pubic pain and bladder spasms intermittently. Pt usually has urinary incontinence since his prostate cancer procedures where the seeded his prostate. Pt also reports that the cancer mets to his R hip and he received radiation treatment. As far as he knows he is cancer free at this time and has been for two years. Denies fever, cough, chills, drugs, etoh, cp, sob, abd pn, recent trauma, flank pain. - Related Data Allergies Allergy/AdvReac Type Severity Reaction Status Date / Time amoxicillin Allergy Blisters Verified 08/01/20 18:04 Penicillins Allergy Blisters Verified 08/01/20 18:04 Home Meds: Home Meds Simvastatin 20 mg PO BEDTIME 02/19/16 [History] Ascorbic Acid [Vitamin C] 1,000 mg PO DAILY 06/08/18 [History] Calcium Carbonate [Calcium] 600 mg PO DAILY 06/08/18 [History] Calcium Carbonate/Vitamin D3 [Calcium 600 + Vit D 200] 600 tab PO BEDTIME 06/08/18 [History] Cholecalciferol (Vitamin D3) [Vitamin D] 800 units PO BEDTIME 06/08/18 [History] Acetaminophen 500 mg PO Q4H PRN 07/02/18 [History] Cholecalciferol (Vitamin D3) [Vitamin D3] 5,000 units PO DAILY 07/06/19 [History] Docusate Sodium 100 mg PO DAILY 07/06/19 [History] Enzalutamide [Xtandi] 160 mg PO BEDTIME 07/06/19 [History] Ferrous Gluconate [Fergon] 324 mg PO DAILY 07/06/19 [History] Sertraline [Zoloft] 75 mg PO DAILY 07/06/19 [History] Denosumab [Xgeva] 120 mg SUBCUT .MONTHLY 01/21/20 [History] Cefpodoxime [Vantin] 200 mg PO BID 08/01/20 [History] Losartan [Cozaar] 25 mg PO DAILY 08/01/20 [History] Past Medical History HEENT History: Reports: Impaired Vision Other HEENT History: glasses Cardiovascular History: Reports: Hypertension Other Cardiovascular History: LVH Respiratory History: Reports: None Gastrointestinal History: Reports: Diverticulosis, Hemorrhoids Genitourinary History: Reports: Other (See Below) Other Genitourinary History: cyst on kidneys Musculoskeletal History: Reports: Other (See Below) Other Musculoskeletal History: HX OF R WRIST FRACTURE. Osseous metastasis, right pubic ramus. Neurological History: Reports: None Psychiatric History: Reports: Depression Endocrine/Metabolic History: Reports: None Hematologic History: Reports: None Immunologic History: Reports: Immunosuppression Oncologic (Cancer) History: Reports: Bone, Lymphoma, Metastatic, Other (See Below) Other Oncologic History: prostate cancer Dermatologic History: Reports: Other (See Below) Other Dermatologic History: over ears possible skin cancer - Infectious Disease History Infectious Disease History: Reports: Chicken Pox, Mumps - Past Surgical History Head Surgeries/Procedures: Reports: None HEENT Surgical History: Reports: None Other HEENT Surgeries/Procedures: central serrous retanopothy. Cardiovascular Surgical History: Reports: None Respiratory Surgical History: Reports: None GI Surgical History: Reports: Colonoscopy, Other (See Below) Other GI Surgeries/Procedures: ventral hernia Male Surgical History: Reports: Ureteral Stent, Other (See Below) Other Male Surgeries/Procedures: orchiectomy. turp Neurological Surgical History: Reports: None Musculoskeletal Surgical History: Reports: None Oncologic Surgical History: Reports: None Social & Family History - Family History Family Medical History: No Pertinent Family History - Tobacco Use Tobacco Use Status *Q: Never Tobacco User - Caffeine Use Caffeine Use: Reports: None, Coffee Other Caffeine Use: 2 cups coffee /day. mountain dew - Recreational Drug Use Recreational Drug Use: No - Living Situation & Occupation Living situation: Reports: , with Spouse Occupation: Retired ED ROS GENERAL - Review of Systems Review Of Systems: Comprehensive ROS is negative, except as noted in HPI. ED EXAM, RENAL/ - Physical Exam Exam Limited By: No Limitations General Appearance: Alert, WD/WN, No Apparent Distress Throat/Mouth: Normal Inspection, Normal Lips, Normal Teeth, Normal Gums, Normal Oropharynx, Normal Voice, No Airway Compromise Head: Atraumatic, Normocephalic Neck: Normal Inspection, Supple, Non-Tender, Full Range of Motion Respiratory/Chest: No Respiratory Distress, Lungs Clear, Normal Breath Sounds, No Accessory Muscle Use, Chest Non-Tender Cardiovascular: Normal Peripheral Pulses, Regular Rate, Rhythm, No Edema, No Gallop, No JVD, No Murmur, No Rub GI/Abdominal: Normal Bowel Sounds, Soft, Non-Tender, No Organomegaly, No Distention, No Abnormal Bruit, No Mass, Other (Supra pubic pain upon palpation.) (Male) Exam: No Hernia, Normal Inspection Rectal (Males) Exam: Deferred Back Exam: Normal Inspection, Full Range of Motion, NT Extremities: Normal Inspection, Other (3+ pedal edema) Neurological: Alert, Oriented, CN II-XII Intact, Normal Cognition, Normal Gait, Normal Reflexes, No Motor/Sensory Deficits Psychiatric: Normal Affect, Normal Mood Departure - Departure Disposition: DC/Tfer to [facility] 02 Clinical Impression: Gross hematuria, Obstructive uropathy - Discharge Information Forms: Interfacility Transfer [facility] Sepsis Event Note (ED) - Evaluation Sepsis Screening Result: No Definite Risk <Janie Man - Last Filed: 08/01/20 19:02> Course - Re-Assessments/Exams Free Text/Narrative Re-Assessment/Exam: 08/01/20 18:59 I personally performed or re-performed the physical examination and medical decision making. I have verified all student documentation or findings, inc luding history, physical exam and/or medical decision making. <Nick Arzate - Last Filed: 08/01/20 21:04> ED HPI GENERAL MEDICAL PROBLEM - General Source of Information: Reports: Patient, Family History Limitations: Reports: No Limitations ED ROS GENERAL - Review of Systems Review Of Systems: Comprehensive ROS is negative, except as noted in HPI. ED EXAM, RENAL/ - Physical Exam Exam: See Below Exam Limited By: No Limitations General Appearance: Alert, WD/WN, Mild Distress, Other (discomfort). No: Active Emesis Ears: Hearing Grossly Normal Throat/Mouth: Normal Voice, No Airway Compromise Head: Atraumatic Neck: Non-Tender, Full Range of Motion Respiratory/Chest: No Respiratory Distress Cardiovascular: Regular Rate, Rhythm GI/Abdominal: Tender, Other (suprapubic) (Male) Exam: Deferred, Other (webster insertion with gross blood) Rectal (Males) Exam: Deferred Neurological: Alert, Oriented, Normal Cognition, Normal Gait, No Motor/Sensory Deficits Psychiatric: Normal Affect, Normal Mood Skin Exam: Warm, Dry, Normal Color Lymphatic: No Adenopathy Course - Vital Signs Last Recorded V/S: Last Vital Signs Temp 36.6 C 08/01/20 18:00 Pulse 76 08/01/20 18:00 Resp 16 08/01/20 18:00 BP 170/94 H 08/01/20 18:00 Pulse Ox 97 08/01/20 18:00 - Orders/Labs/Meds Orders: Active Orders 24 hr Category Date Time Status Insert Webster Catheter [Insert Urinary Catheter] [OM.PC] Care 08/01/20 19:15 Ordered Q24H Peripheral IV Care [RC] . DIRECTED Care 08/01/20 18:46 Active Urinary Catheter Assessment [RC] ASDIRECTED Care 08/01/20 19:16 Active Sodium Chloride 0.9% [Saline Flush] Med 08/01/20 18:46 Active 10 ml FLUSH ASDIRECTED PRN Peripheral IV Insertion Adult [OM.PC] Stat Oth 08/01/20 18:46 Ordered Medication Orders Sodium Chloride (Saline Flush) 10 ml FLUSH ASDIRECTED PRN PRN Reason: Keep Vein Open Last Admin: 08/01/20 19:03 Dose: 10 ml Documented by: JOHN Labs: Laboratory Tests 08/01/20 08/01/20 08/01/20 Range/Units 19:03 19:03 19:03 WBC 3.8 L (5.0-10.0) 10^3/uL RBC 3.15 L (4.6-6.2) 10^6/uL Hgb 10.3 L (14.0-18.0) g/dL Hct 31.5 L (40.0-54.0) % MCV 100.0 (80-100) fL MCH 32.7 (27.0-34.0) pg MCHC 32.7 L (33.0-35.0) g/dL Plt Count 238 D (150-450) 10^3/uL Neut % (Auto) 72.6 (42.2-75.2) % Lymph % (Auto) 14.2 L (20.5-50.1) % [place] % (Auto) 8.2 H (2-8) % Eos % (Auto) 3.9 H (1.0-3.0) % Baso % (Auto) 1.1 H (0.0-1.0) % Sodium 140 (136-145) mmol/L Potassium 4.0 (3.5-5.1) mmol/L Chloride 104 (98-107) mmol/L Carbon Dioxide 26 (21-32) mmol/L Anion Gap 14.0 H (7-13) mEq/L BUN 29 H (7-18) mg/dL Creatinine 1.44 H (0.70-1.30) mg/dL Est Cr Clr Drug Dosing 46.37 mL/min Estimated GFR (MDRD) 48 BUN/Creatinine Ratio 20.1 (No establ ref range) Glucose 94 (74-99) mg/dL Lactic Acid 0.9 (0.4-2.0) mmol/L Calcium 9.3 (8.5-10.1) mg/dL Total Bilirubin 0.2 (0.2-1.0) mg/dL AST 14 L (15-37) U/L ALT 18 (16-63) U/L Alkaline Phosphatase 53 (46-116) U/L Lactate Dehydrogenase 131 (85-227) U/L C-Reactive Protein 0.9 (0.0-0.9) mg/dL Total Protein 7.7 (6.4-8.2) g/dL Albumin 3.8 (3.4-5.0) g/dL Globulin 3.9 Albumin/Globulin Ratio 1.0 Urine Color (YELLOW) Urine Appearance (CLEAR) Urine pH (5.0-9.0) Ur Specific [place] (1.005-1.030) Urine Protein (NEGATIVE) Urine Glucose (UA) (NEGATIVE) Urine Ketones (NEGATIVE) Urine Occult Blood (NEGATIVE) Urine Nitrite (NEGATIVE) Urine Bilirubin (NEGATIVE) Urine Urobilinogen (0.2-1.0) mg/dL Ur Leukocyte Esterase (NEGATIVE) Urine RBC /HPF Urine WBC (0-5/HPF) /HPF Ur Epithelial Cells (NOT SEEN) /HPF Amorphous Sediment (NOT SEEN) /HPF Urine Bacteria (0-FEW/HPF) /HPF Urine Mucus (NOT SEEN) /LPF Urinalysis Comment 08/01/20 Range/Units 19:40 WBC (5.0-10.0) 10^3/uL RBC (4.6-6.2) 10^6/uL Hgb (14.0-18.0) g/dL Hct (40.0-54.0) % MCV (80-100) fL MCH (27.0-34.0) pg MCHC (33.0-35.0) g/dL Plt Count (150-450) 10^3/uL Neut % (Auto) (42.2-75.2) % Lymph % (Auto) (20.5-50.1) % [place] % (Auto) (2-8) % Eos % (Auto) (1.0-3.0) % Baso % (Auto) (0.0-1.0) % Sodium (136-145) mmol/L Potassium (3.5-5.1) mmol/L Chloride (98-107) mmol/L Carbon Dioxide (21-32) mmol/L Anion Gap (7-13) mEq/L BUN (7-18) mg/dL Creatinine (0.70-1.30) mg/dL Est Cr Clr Drug Dosing mL/min Estimated GFR (MDRD) BUN/Creatinine Ratio (No establ ref range) Glucose (74-99) mg/dL Lactic Acid (0.4-2.0) mmol/L Calcium (8.5-10.1) mg/dL Total Bilirubin (0.2-1.0) mg/dL AST (15-37) U/L ALT (16-63) U/L Alkaline Phosphatase (46-116) U/L Lactate Dehydrogenase (85-227) U/L C-Reactive Protein (0.0-0.9) mg/dL Total Protein (6.4-8.2) g/dL Albumin (3.4-5.0) g/dL Globulin Albumin/Globulin Ratio Urine Color Felipa (YELLOW) Urine Appearance Turbid (CLEAR) Urine pH 6.0 (5.0-9.0) Ur Specific [place] 1.020 (1.005-1.030) Urine Protein >=300 H (NEGATIVE) Urine Glucose (UA) Negative (NEGATIVE) Urine Ketones Negative (NEGATIVE) Urine Occult Blood Large H (NEGATIVE) Urine Nitrite Negative (NEGATIVE) Urine Bilirubin Small H (NEGATIVE) Urine Urobilinogen 0.2 (0.2-1.0) mg/dL Ur Leukocyte Esterase Negative (NEGATIVE) Urine RBC Packed H /HPF Urine WBC 0-5 (0-5/HPF) /HPF Ur Epithelial Cells Occasional (NOT SEEN) /HPF Amorphous Sediment Few (NOT SEEN) /HPF Urine Bacteria Rare (0-FEW/HPF) /HPF Urine Mucus Rare (NOT SEEN) /LPF Urinalysis Comment See note Meds: Medications Generic Name Dose Route Start Last Admin Trade Name Erin PRN Reason Stop Dose Admin Sodium Chloride 10 ml 08/01/20 18:46 08/01/20 19:03 Saline Flush FLUSH 10 ml ASDIRECTED PRN Administration Keep Vein Open Discontinued Medications Generic Name Dose Route Start Last Admin Trade Name Frechey PRN Reason Stop Dose Admin Diazepam 5 mg 08/01/20 19:29 08/01/20 19:32 Valium IVPUSH 08/01/20 19:30 5 mg ONETIME ONE Administration Diazepam Confirm 08/01/20 19:30 08/01/20 19:54 Valium Administered 08/01/20 19:31 Not Given Dose 10 mg .ROUTE .STK-MED ONE Lidocaine HCl Confirm 08/01/20 19:28 08/01/20 19:33 Xylocaine 2% Jelly Administered 08/01/20 19:29 10 ml Dose Administration 10 ml .ROUTE .STK-MED ONE Lidocaine HCl 10 ml 08/01/20 19:56 08/01/20 19:58 Xylocaine 2% Jelly MUCMEM 08/01/20 19:57 Not Given ONETIME ONE - Re-Assessments/Exams Free Text/Narrative Re-Assessment/Exam: 08/01/20 21:01 results discussed with spouse and case discussed with Dr Acharya @ who kindly accepted pt. Departure - Departure Time of Disposition: 21:03 Condition: Good Sepsis Event Note (ED) - Focused Exam Vital Signs: Vital Signs Temp Pulse Resp BP Pulse Ox 08/01/20 18:00 36.6 C 76 16 170/94 H 97
[2020-08-01] MEDS ORDERED: Sodium Chloride 0.9% 10 ML Syringe FLUSH PRN (18:46)
[2020-08-01] MEDS ORDERED: Lidocaine 2% Jelly 10 ML Urojet ONE (19:28)
[2020-08-01] MEDS ORDERED: Lidocaine 2% Jelly 10 ML Urojet MUCMEM ONE (19:56)
--- NOTE | 2020-08-01 20:20 | CT ---
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 Radiation optimization: All CT scans at this facility use at least one of these dose optimization techniques: automated exposure control; mA and/or kV adjustment per patient size (includes targeted exams where dose is matched to clinical indication); or iterative reconstruction. COMPARISON: CT Abdomen Pelvis w Cont 06/08/2018 1:59 PM FINDINGS: Lungs: Linear atelectasis or scarring in right lower lobe. Heart: There is a soft tissue nodule 1 cm in diameter on series 2, image 15 at border of left heart and left lung. Liver: The liver is normal in architecture, without suspicious abnormality. Scattered congenital hepatic cysts requiring no additional workup. Gallbladder and bile ducts: No calcified gallstones. No ductal dilation. Pancreas: The pancreatic parenchyma is normal in bulk and sharply marginated. Duct is not dilated. No calcifications, masses, or abnormal fluid collections. Spleen: Spleen is normal in size. No mass or fluid collection. Adrenal glands: There are no adrenal masses. Kidneys and ureters: Bilateral hydroureteronephrosis. No stones. Normal parenchymal bulk. No solid masses. Stomach and bowel: No significant abnormalities of the stomach. There are no dilated or thickened small bowel loops. Gas and stool are seen in the colon to the rectum. No mass. The mural stratification of pelvic bowel loops on the previous study is not present today. Appendix: The appendix is seen. It is normal. Intraperitoneal space: No pneumoperitoneum, ascites, mass or stranding of fat. Retroperitoneal space: Non masslike presacral soft tissue thickening consistent with post treatment changes. More extensive than before. Vasculature: There are atherosclerotic calcifications inclusive of the coronary arteries. There is atherosclerotic calcification of the aorto-iliac tree. There is no abdominal aortic aneurysm. Lymph nodes: Metastatic extraperitoneal lymphadenopathy is present. In exemplary metastatic lymph node is in the left periaortic position measuring 1.3 x 2.1 cm. Urinary bladder: A Sanchez catheter partially decompresses the urinary bladder. Lobular high density within the bladder consistent with blood clots. Reproductive: No acute pathology. Bones/joints: There is age-appropriate spondylosis of the spine. There are no suspicious lytic or osteosclerotic lesions. There are no vertebral compression fractures. Soft tissues: No suspicious soft tissue masses, soft tissue gas of significance, or hernia. IMPRESSION: 1. 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 These findings were not present to this degree previously. 2. Lobular high density within the bladder consistent with blood clots. 3. 1 cm solitary noncalcified nodule left hemithorax, suspicious for metastasis. 4. Metastatic extraperitoneal lymphadenopathy is present. Lymph nodes are larger than on June 08, 2018.
[2020-08-01] MEDS ORDERED: fentaNYL 100 MCG/2 ML SDV IVPUSH ONE (21:23)
== END 2020-08-01 21:40 ==
LOC: DL.ED 17:07
DX: N13.9 Obstructive and reflux uropathy, unspecified (principal); R31.0 Gross hematuria; I10 Essential (primary) hypertension; F32.9 Major depressive disorder, single episode, unspecified; Z88.0 Allergy status to penicillin; Z79.899 Other long term (current) drug therapy
CPT/HCPCS: 36415; 51702; 51798; 74176; 80053; 81001; 83605; 83615; 85025; 86140; 96374; 96375; 99284; 99285-25; J3010; J3360

== ENCOUNTER 2020-09-11 11:13 | Emergency (ER) | payer MEDICARE, OTHER ==
[2020-09-11 11:25] VITALS: BP 183/89; PULSE 75
[2020-09-11] MEDS ORDERED: HYDROmorphone 0.5 MG/0.5 ML Syringe IVPUSH ONE ×2 (11:28→14:17)
[2020-09-11] MEDS ORDERED: Ondansetron 4 MG/2 ML SDV IVPUSH ONE (11:35)
--- NOTE | 2020-09-11 11:42 | EDM.PDOC ---
ED HPI GENERAL MEDICAL PROBLEM - General Chief Complaint: Genitourinary Problem Stated Complaint: UNABLE TO URINATE Time Seen by Provider: 09/11/20 11:25 Source of Information: Reports: Patient History Limitations: Reports: No Limitations - History of Present Illness INITIAL COMMENTS - FREE TEXT/NARRATIVE: This 74 yo male patient reports to the ED due to having difficulties urinating. The patient reports he started to pass blood clots yesterday and has had increased difficulties urinating today. The patient reports he did pass a large clot this morning, but has not been able to urinate since that time. The patient's (a nurse) did attempt to straight cath the patient, but was unable to evacuate the clot due to the small diameter of the catheter. The patient has a history of prostate cancer and has had similar episodes in the past (the last episode was in July). During that episode, the patient did get transferred to [facility] for CBI. The patient's reports the patient had bleeding for 18 days during the previous episode. The patient was supposed to have an appointment yesterday for cauterization, but the appointment was cancelled due to the bleeding stopping. The patient normally sees Dr Vu with Urology at [facility]. Onset Date: 09/10/20 Duration: Constant, Getting Worse Location: Reports: Abdomen Quality: Reports: Ache Severity: Severe Improves with: Reports: None Worsens with: Reports: None Context: Reports: Other Associated Symptoms: Reports: No Other Symptoms Lower Abdominal Pain Score (Numeric/FACES): 6 - Related Data Allergies Allergy/AdvReac Type Severity Reaction Status Date / Time amoxicillin Allergy Blisters Verified 09/11/20 11:25 Penicillins Allergy Blisters Verified 09/11/20 11:25 Home Meds: Home Meds Simvastatin 20 mg PO BEDTIME 02/19/16 [History] Ascorbic Acid [Vitamin C] 1,000 mg PO DAILY 06/08/18 [History] Calcium Carbonate [Calcium] 600 mg PO DAILY 06/08/18 [History] Calcium Carbonate/Vitamin D3 [Calcium 600 + Vit D 200] 600 tab PO BEDTIME 06/08/18 [History] Cholecalciferol (Vitamin D3) [Vitamin D] 800 units PO BEDTIME 06/08/18 [History] Acetaminophen 500 mg PO Q4H PRN 07/02/18 [History] Cholecalciferol (Vitamin D3) [Vitamin D3] 5,000 units PO DAILY 07/06/19 [History] Docusate Sodium 100 mg PO DAILY 07/06/19 [History] Enzalutamide [Xtandi] 160 mg PO BEDTIME 07/06/19 [History] Ferrous Gluconate [Fergon] 324 mg PO DAILY 07/06/19 [History] Sertraline [Zoloft] 75 mg PO DAILY 07/06/19 [History] Denosumab [Xgeva] 120 mg SUBCUT .MONTHLY 01/21/20 [History] Cefpodoxime [Vantin] 200 mg PO BID 08/01/20 [History] Losartan [Cozaar] 25 mg PO DAILY 08/01/20 [History] Past Medical History HEENT History: Reports: Impaired Vision Other HEENT History: glasses Cardiovascular History: Reports: Hypertension Other Cardiovascular History: LVH Respiratory History: Reports: None Gastrointestinal History: Reports: Diverticulosis, Hemorrhoids Genitourinary History: Reports: Other (See Below) Other Genitourinary History: cyst on kidneys Musculoskeletal History: Reports: Other (See Below) Other Musculoskeletal History: HX OF R WRIST FRACTURE. Osseous metastasis, right pubic ramus. Neurological History: Reports: None Psychiatric History: Reports: Depression Endocrine/Metabolic History: Reports: None Hematologic History: Reports: None Immunologic History: Reports: Immunosuppression Oncologic (Cancer) History: Reports: Bone, Lymphoma, Metastatic, Other (See Below) Other Oncologic History: prostate cancer Dermatologic History: Reports: Other (See Below) Other Dermatologic History: over ears possible skin cancer - Infectious Disease History Infectious Disease History: Reports: Chicken Pox, Mumps - Past Surgical History Head Surgeries/Procedures: Reports: None HEENT Surgical History: Reports: None Other HEENT Surgeries/Procedures: central serrous retanopothy. Cardiovascular Surgical History: Reports: None Respiratory Surgical History: Reports: None GI Surgical History: Reports: Colonoscopy, Other (See Below) Other GI Surgeries/Procedures: ventral hernia Male Surgical History: Reports: Ureteral Stent, Other (See Below) Other Male Surgeries/Procedures: orchiectomy. turp Neurological Surgical History: Reports: None Musculoskeletal Surgical History: Reports: None Oncologic Surgical History: Reports: None Social & Family History - Family History Family Medical History: No Pertinent Family History - Tobacco Use Tobacco Use Status *Q: Never Tobacco User Second Hand Smoke Exposure: No - Caffeine Use Caffeine Use: Reports: None Other Caffeine Use: 2 cups coffee /day. mountain dew - Recreational Drug Use Recreational Drug Use: No - Living Situation & Occupation Living situation: Reports: , with Spouse Occupation: Retired ED ROS GENERAL - Review of Systems Review Of Systems: Comprehensive ROS is negative, except as noted in HPI. ED EXAM, RENAL/ - Physical Exam Exam: See Below Exam Limited By: No Limitations General Appearance: Alert, WD/WN, Moderate Distress Eye Exam: Bilateral Eye: EOMI, Normal Inspection, PERRL Ears: Normal External Exam, Normal Canal, Hearing Grossly Normal, Normal TMs Nose: Normal Inspection, Normal Mucosa, No Blood Throat/Mouth: Normal Inspection, Normal Lips, Normal Teeth, Normal Gums, Normal Oropharynx, Normal Voice, No Airway Compromise Head: Atraumatic, Normocephalic Neck: Normal Inspection, Supple, Non-Tender, Full Range of Motion Respiratory/Chest: No Respiratory Distress, Lungs Clear, Normal Breath Sounds, No Accessory Muscle Use, Chest Non-Tender Cardiovascular: Normal Peripheral Pulses, Regular Rate, Rhythm, No Edema, No Gallop, No JVD, No Murmur, No Rub GI/Abdominal: Tender (lower abdomen) (Male) Exam: Deferred Rectal (Males) Exam: Deferred Back Exam: Normal Inspection, Full Range of Motion, NT Extremities: Normal Inspection, Normal Range of Motion, Non-Tender, Normal Capillary Refill, No Pedal Edema Neurological: Alert, Oriented, CN II-XII Intact, Normal Cognition, Normal Gait, Normal Reflexes, No Motor/Sensory Deficits Psychiatric: Normal Affect, Normal Mood Skin Exam: Warm, Dry, Intact, Normal Color, No Rash Lymphatic: No Adenopathy Course - Vital Signs Last Recorded V/S: Last Vital Signs Temp 36.6 C 09/11/20 11:18 Pulse 75 09/11/20 11:18 Resp 18 09/11/20 11:18 BP 183/89 H 09/11/20 11:18 Pulse Ox 95 09/11/20 11:18 - Orders/Labs/Meds Orders: Active Orders 24 hr Category Date Time Status Bladder Scan [RC] ASDIRECTED Care 09/11/20 11:35 Active Urinary Catheter Assessment [RC] ASDIRECTED Care 09/11/20 11:43 Active Urinary Catheter Insertion [Insert Urinary Catheter] [ Care 09/11/20 11:45 Ordered OM.PC] Q24H Labs: Laboratory Tests 09/11/20 09/11/20 09/11/20 Range/Units 11:53 11:59 13:06 WBC 5.5 (5.0-10.0) 10^3/uL RBC 3.22 L (4.6-6.2) 10^6/uL Hgb 10.8 L (14.0-18.0) g/dL Hct 32.4 L (40.0-54.0) % MCV 100.6 H (80-100) fL MCH 33.5 (27.0-34.0) pg MCHC 33.3 (33.0-35.0) g/dL Plt Count 217 (150-450) 10^3/uL Neut % (Auto) 85.8 H (42.2-75.2) % Lymph % (Auto) 6.8 L (20.5-50.1) % Grainger % (Auto) 5.7 (2-8) % Eos % (Auto) 1.3 (1.0-3.0) % Baso % (Auto) 0.4 (0.0-1.0) % Sodium 140 (136-145) mmol/L Potassium 4.7 (3.5-5.1) mmol/L Chloride 103 (98-107) mmol/L Carbon Dioxide 27 (21-32) mmol/L Anion Gap 14.7 H (7-13) mEq/L BUN 26 H (7-18) mg/dL Creatinine 1.67 H (0.70-1.30) mg/dL Est Cr Clr Drug Dosing 39.98 mL/min Estimated GFR (MDRD) 41 BUN/Creatinine Ratio 15.6 (No establ ref range) Glucose 108 H (74-99) mg/dL Calcium 9.2 (8.5-10.1) mg/dL Total Bilirubin 0.3 (0.2-1.0) mg/dL AST 15 (15-37) U/L ALT 23 (16-63) U/L Alkaline Phosphatase 52 (46-116) U/L Total Protein 7.3 (6.4-8.2) g/dL Albumin 3.6 (3.4-5.0) g/dL Globulin 3.7 Albumin/Globulin Ratio 1.0 Urine Color Red (YELLOW) Urine Appearance Turbid (CLEAR) Urine pH 5.5 (5.0-9.0) Ur Specific [place] 1.015 (1.005-1.030) Urine Protein >=300 H (NEGATIVE) Urine Glucose (UA) Negative (NEGATIVE) Urine Ketones Negative (NEGATIVE) Urine Occult Blood Large H (NEGATIVE) Urine Nitrite Negative (NEGATIVE) Urine Bilirubin Negative (NEGATIVE) Urine Urobilinogen 0.2 (0.2-1.0) mg/dL Ur Leukocyte Esterase Negative (NEGATIVE) Urine RBC Packed H /HPF Urine WBC 0-5 (0-5/HPF) /HPF Ur Epithelial Cells Rare (NOT SEEN) /HPF Amorphous Sediment Rare (NOT SEEN) /HPF Urine Bacteria Rare (0-FEW/HPF) /HPF Urine Mucus Rare (NOT SEEN) /LPF Meds: Medications Discontinued Medications Generic Name Dose Route Start Last Admin Trade Name Freq PRN Reason Stop Dose Admin Hydromorphone HCl 0.5 mg 09/11/20 11:28 09/11/20 11:42 Dilaudid IVPUSH 09/11/20 11:29 0.5 mg ONETIME ONE Administration Ondansetron HCl 4 mg 09/11/20 11:35 09/11/20 11:42 Zofran IVPUSH 09/11/20 11:36 4 mg ONETIME ONE Administration Departure - Departure Time of Disposition: 14:13 Disposition: DC/Tfer to Acute Hospital 02 Condition: Fair Clinical Impression: Gross hematuria - Discharge Information *PRESCRIPTION DRUG MONITORING PROGRAM REVIEWED*: Not Applicable *COPY OF PRESCRIPTION DRUG MONITORING REPORT IN PATIENT JALIL: Not Applicable Care Plan Goals: Discussed the patient's history, examination, lab and treatments with Dr Jeter with [facility] in [place]. The patient was accepted for continued evaluation and further management. The patient will be transported by private vehicle to [facility] in [place]. Sepsis Event Note (ED) - Evaluation Sepsis Screening Result: No Definite Risk - Focused Exam Vital Signs: Vital Signs Temp Pulse Resp BP Pulse Ox 09/11/20 11:18 36.6 C 75 18 183/89 H 95 - My Orders Last 24 Hours: My Active Orders 09/11/20 11:35 Bladder Scan [RC] ASDIRECTED 09/11/20 11:43 Urinary Catheter Assessment [RC] ASDIRECTED 09/11/20 11:45 Urinary Catheter Insertion [Insert Urinary Catheter] [OM.PC] Q24H - Assessment/Plan Last 24 Hours: My Active Orders 09/11/20 11:35 Bladder Scan [RC] ASDIRECTED 09/11/20 11:43 Urinary Catheter Assessment [RC] ASDIRECTED 09/11/20 11:45 Urinary Catheter Insertion [Insert Urinary Catheter] [OM.PC] Q24H
[2020-09-11 12:19] LABS: ANION GAP 14.7 mEq/L (7-13)
== END 2020-09-11 14:35 ==
LOC: DL.ED 11:13
DX: R31.0 Gross hematuria (principal); I10 Essential (primary) hypertension; Z79.899 Other long term (current) drug therapy; Z88.0 Allergy status to penicillin
CPT/HCPCS: 36415; 51702; 80053; 81001; 85025; 96374; 96375; 96376; 99283; 99284; J1170; J2405

== ENCOUNTER 2020-09-30 09:09 | Day surgery (SDC) | payer MEDICARE, OTHER ==
[2020-09-30] MEDS ORDERED: Dexamethasone 4 MG/ML SDV IV ONE (09:10)
[2020-09-30] MEDS ORDERED: Sodium Chloride 0.9% 10 ML Syringe IV ONE (09:10)
[2020-09-30] MEDS ORDERED: Midazolam 1 MG/ML 2 ML SDV IV ONE (09:10)
[2020-09-30] MEDS ORDERED: Ondansetron 4 MG/2 ML SDV IVPUSH PRN (09:45)
[2020-09-30] MEDS ORDERED: Phenylephrine 10% Ophth Soln 5 ML Bot EYELF PRN (09:45)
[2020-09-30] MEDS ORDERED: Moxifloxacin 0.5% Ophth Soln 3 ML Bottle EYELF ONE (09:45)
[2020-09-30] MEDS ORDERED: Cataract Ophth Solution EYELF ONE (09:45)
[2020-09-30] MEDS ORDERED: Proparacaine 0.5% Ophth Soln 15 ML Bottle EYELF ONE (09:45)
[2020-09-30] MEDS ORDERED: Acetaminophen 325 MG Tab PO PRN (09:45)
[2020-09-30] MEDS ORDERED: Phenylephrine 10% Ophth Soln 5 ML Bot EYELF ONE ×2 (09:45→11:12)
[2020-09-30] MEDS ORDERED: Timolol Maleate 0.5% Ophth Soln 5 ML Bottle EYELF ONE (09:45)
[2020-09-30] MEDS ORDERED: Tropicamide 1% Ophth Soln 15 ML Bottle EYELF ONE (09:45)
[2020-09-30] MEDS ORDERED: Povidone-Iodine 5% Sterile Ophth Soln 30 ML Bottle EYELF ONE ×2 (09:45→11:11)
[2020-09-30] MEDS ORDERED: Sodium Chloride 0.9% 10 ML Syringe FLUSH PRN (09:45)
[2020-09-30] MEDS ORDERED: Lidocaine 1% 30 ML SDV ONE (11:11)
[2020-09-30] MEDS ORDERED: Apraclonidine 0.5% Ophth Soln 5 ML Bot EYELF ONE (11:11)
[2020-09-30] MEDS ORDERED: Tetracaine HCl/PF 0.5% 4 ML Bottle EYELF ONE (11:11)
[2020-09-30] MEDS ORDERED: Vancomycin 500 MG SDV EYELF ONE (11:12)
[2020-09-30] MEDS ORDERED: Balanced Salt Solution Ophth Irrig 500 ML Bottle IOCULAR ONE (11:12)
[2020-09-30] MEDS ORDERED: Diclofenac Sodium 0.1% Ophth Soln 5 ML Bottle EYELF ONE (11:12)
[2020-09-30] MEDS ORDERED: Chondroitin Sulfate/Hyaluronate Sodium Ophth Inj 0.75 ML Syringe EYELF ONE (11:12)
[2020-09-30 13:42] VITALS: BP 142/71; PULSE 66
--- NOTE | 2020-09-30 15:42 | OR ---
DATE: 09/30/2020 PREOPERATIVE DIAGNOSIS: Visually significant mixed cataract, left eye. POSTOPERATIVE DIAGNOSIS: Visually significant mixed cataract, left eye. PROCEDURE: Extracapsular cataract extraction with intraocular lens implant, left eye. ANESTHESIA: Topical/local MAC. COMPLICATIONS: None. INDICATION: Mr. Campos was seen in the clinic. He is unhappy with his vision. He has difficulty with seeing road signs, difficulty with bright lights and glare, difficulty reading. His examination revealed visually significant mixed cataract with best spectacle corrected vision at the level of 20/40. Oncoming light reveals a visual acuity of 20/400. I explained the options, I offered cataract surgery, and I explained the risks including, but not limited to infection, retinal detachment, loss of vision, need for additional surgery, and risks associated with anesthesia. We discussed implant options. He has requested a Symfony implant. I did explain the increased potential for glare, halo, and dysphotopsia. 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 He understands that the visual potential may be limited by retinal health. He is symptomatic and motivated to proceed. He requested a Symfony implant and voiced an understanding with respect to risks. OPERATIVE DESCRIPTION: After informed consent was obtained and the risks, benefits, and alternatives were explained, the patient was brought to the operative suite and topical anesthesia was administered. The patient was then prepped and draped in the sterile fashion and attention was placed on the left eye. A sterile lid speculum was placed into the left eye to allow operative exposure. A full-thickness paracentesis was made in the temporal portion of the operative eye. Preservative-free lidocaine 0.1 mL was injected into the anterior chamber followed by viscoelastic. A full-thickness corneal incision was then made into the anterior chamber. A bent needle cystotome was used to create a small anay in the anterior capsule. The capsulorrhexis forceps was then used to create a 360-degree curvilinear capsulorrhexis. The nucleus was then removed using a phacoemulsification handpiece and the remaining cortical material was then removed with irrigation and aspiration handpiece. Following removal of the cortical material, the capsular bag was then inspected and noted to be free of any holes or tears. Viscoelastic was then injected into the capsular bag and the intraocular lens was inserted into the capsular bag. The viscoelastic material was then removed from both the anterior and posterior chambers and from behind the IOL. The lens and capsular bag were then reinspected. The IOL was well centered and the capsular bag intact. The wound and paracentesis sites were inspected and hydrated with balanced saline solution. Both were found to be self- sealing. The intraocular pressure was assessed digitally and found to be within normal range. A good red reflex was noted at the completion of the procedure. No complications occurred during the operation. At the completion of the procedure, Maxitrol, Voltaren, and Iopidine drops were placed into the operative eye. A sterile eye shield was placed over the operative eye and the patient was transported to the postoperative recovery area having tolerated the procedure well. Postoperative instructions were given along with a postoperative appointment. The patient was advised to call with any questions or concerns. [facility] /[id number]
== END 2020-09-30 12:25 | disposition home or self-care (01) ==
LOC: DL.SDS 09:09
PROVIDERS: ATTEND Ophthalmology
DX: H26.8 Other specified cataract (principal); E78.5 Hyperlipidemia, unspecified; D64.9 Anemia, unspecified; I12.9 Hypertensive chronic kidney disease with stage 1 through stage 4 chronic kidney disease, or unspecified chronic kidney disease; N18.4 Chronic kidney disease, stage 4 (severe); Z87.891 Personal history of nicotine dependence; Z88.1 Allergy status to other antibiotic agents; Z88.0 Allergy status to penicillin; Z88.8 Allergy status to other drugs, medicaments and biological substances; Z85.46 Personal history of malignant neoplasm of prostate; Z79.899 Other long term (current) drug therapy; Z98.890 Other specified postprocedural states
CPT/HCPCS: 66984; J1100; J2250; J3370; 00142; V2788-GY

== ENCOUNTER 2020-10-07 07:25 | Day surgery (SDC) | payer MEDICARE, OTHER ==
[2020-10-07] MEDS ORDERED: Dexamethasone 4 MG/ML SDV IV ONE (07:26)
[2020-10-07] MEDS ORDERED: Midazolam 1 MG/ML 2 ML SDV IV ONE (07:26)
[2020-10-07] MEDS ORDERED: Sodium Chloride 0.9% 10 ML Syringe IV ONE (07:26)
[2020-10-07] MEDS ORDERED: Povidone-Iodine 5% Sterile Ophth Soln 30 ML Bottle EYERT ONE ×2 (07:30→08:51)
[2020-10-07] MEDS ORDERED: Cataract Ophth Solution EYERT ONE (07:30)
[2020-10-07] MEDS ORDERED: Acetaminophen 325 MG Tab PO PRN (07:30)
[2020-10-07] MEDS ORDERED: Phenylephrine 10% Ophth Soln 5 ML Bot EYERT ONE ×2 (07:30→08:50)
[2020-10-07] MEDS ORDERED: Proparacaine 0.5% Ophth Soln 15 ML Bottle EYERT ONE (07:30)
[2020-10-07] MEDS ORDERED: Tropicamide 1% Ophth Soln 15 ML Bottle EYERT ONE (07:30)
[2020-10-07] MEDS ORDERED: Ondansetron 4 MG/2 ML SDV IVPUSH PRN (07:30)
[2020-10-07] MEDS ORDERED: Phenylephrine 10% Ophth Soln 5 ML Bot EYERT PRN (07:30)
[2020-10-07] MEDS ORDERED: Moxifloxacin 0.5% Ophth Soln 3 ML Bottle EYERT ONE (07:30)
[2020-10-07] MEDS ORDERED: Timolol Maleate 0.5% Ophth Soln 5 ML Bottle EYERT ONE (07:30)
[2020-10-07] MEDS ORDERED: Sodium Chloride 0.9% 10 ML Syringe FLUSH PRN (07:30)
[2020-10-07] MEDS ORDERED: Lidocaine 1% 30 ML SDV ONE (08:49)
[2020-10-07] MEDS ORDERED: Tetracaine HCl/PF 0.5% 4 ML Bottle EYERT ONE (08:49)
[2020-10-07] MEDS ORDERED: Diclofenac Sodium 0.1% Ophth Soln 5 ML Bottle EYERT ONE (08:50)
[2020-10-07] MEDS ORDERED: Balanced Salt Solution Ophth Irrig 500 ML Bottle IOCULAR ONE (08:50)
[2020-10-07] MEDS ORDERED: Apraclonidine 0.5% Ophth Soln 5 ML Bot EYERT ONE (08:50)
[2020-10-07] MEDS ORDERED: Vancomycin 500 MG SDV EYERT ONE (08:51)
[2020-10-07] MEDS ORDERED: Chondroitin Sulfate/Hyaluronate Sodium Ophth Inj 0.75 ML Syringe EYERT ONE (08:51)
[2020-10-07 13:57] VITALS: BP 146/70; PULSE 62
--- NOTE | 2020-10-07 14:09 | OR ---
DATE: 10/07/2020 PREOPERATIVE DIAGNOSIS: Visually significant mixed cataract, right eye. POSTOPERATIVE DIAGNOSIS: Visually significant mixed cataract, right eye. PROCEDURE: Extracapsular cataract extraction with intraocular lens implant, right eye. ANESTHESIA: Topical/local MAC. COMPLICATIONS: None. INDICATION: Mr. Campos was seen in the clinic. His examination revealed visually significant mixed cataract. He is unhappy with his vision noticing blurred vision, difficulty reading, difficulty driving, difficulty with glare, difficulty seeing signs on the wall. I explained options, offered cataract surgery, and I explained risks including, but not limited to infection, retinal detachment, loss of vision, need for additional surgery, and risks associated with anesthesia including loss of life. We discussed implant options. He has requested a Symfony implant. I did explain the increased potential for glare, halo, and dysphotopsia. He also understands that he may still require glasses for some limited activities. He has voiced an understanding and is motivated to proceed. OPERATIVE DESCRIPTION: After informed consent was obtained and the risks, benefits, and alternatives were explained, the patient was brought to the operative suite and topical anesthesia was administered. The patient was then prepped and draped in the sterile fashion and attention was placed on the right eye. A sterile lid speculum was placed into the right eye to allow operative exposure. A full-thickness paracentesis was made in the temporal portion of the operative eye. Preservative-free lidocaine 0.1 mL was injected into the anterior chamber followed by viscoelastic. A full-thickness corneal incision was then made into the anterior chamber. A bent needle cystotome was used to create a small anay in the anterior capsule. The capsulorrhexis forceps was then used to create a 360-degree curvilinear capsulorrhexis. The nucleus was then removed using a phacoemulsification handpiece and the remaining cortical material was then removed with irrigation and aspiration handpiece. Following removal of the cortical material, the capsular bag was then inspected and noted to be free of any holes or tears. Viscoelastic was then injected into the capsular bag and the intraocular lens was inserted into the capsular bag. The viscoelastic material was then removed from both the anterior and posterior chambers and from behind the IOL. The lens and capsular bag were then reinspected. The IOL was well centered and the capsular bag intact. The wound and paracentesis sites were inspected and hydrated with balanced saline solution. Both were found to be self- sealing. The intraocular pressure was assessed digitally and found to be within normal range. A good red reflex was noted at the completion of the procedure. No complications occurred during the operation. At the completion of the procedure, Maxitrol, Voltaren, and Iopidine drops were placed into the operative eye. A sterile eye shield was placed over the operative eye and the patient was transported to the postoperative recovery area having tolerated the procedure well. Postoperative instructions were given along with a postoperative appointment. The patient was advised to call with any questions or concerns. [facility] /[id number]
== END 2020-10-07 10:01 | disposition home or self-care (01) ==
LOC: DL.SDS 07:25
PROVIDERS: ATTEND Ophthalmology
DX: H26.8 Other specified cataract (principal); I10 Essential (primary) hypertension; E78.5 Hyperlipidemia, unspecified; Z98.890 Other specified postprocedural states; Z87.891 Personal history of nicotine dependence; Z79.899 Other long term (current) drug therapy; Z88.0 Allergy status to penicillin; Z88.1 Allergy status to other antibiotic agents; Z88.8 Allergy status to other drugs, medicaments and biological substances
CPT/HCPCS: 66984; J1100; J2250; J3370; V2788; 00142

== ENCOUNTER 2021-02-08 11:09 | Emergency (ER) | payer MEDICARE, OTHER ==
--- NOTE | 2021-02-08 11:27 | EDM.PDOC ---
ED HPI GENERAL MEDICAL PROBLEM - General Chief Complaint: Genitourinary Problem Stated Complaint: KIDNEY PAIN Time Seen by Provider: 02/08/21 12:00 Source of Information: Reports: Patient History Limitations: Reports: No Limitations - History of Present Illness INITIAL COMMENTS - FREE TEXT/NARRATIVE: This 75 yo male patient reports to the ED due to a fever that started 02/07/21. The patient has a history of frequent UTI's due to prostate cancer and cystitis. The patient reports he has noticed an increased "stringy" substance in his urine over the past month. The patient has an appointment with his urologist in [place] on Monday. Onset Date: 02/07/21 Duration: Constant, Getting Worse Location: Reports: Other Quality: Reports: Ache, Sharp Severity: Moderate Improves with: Reports: None Worsens with: Reports: None bladder Pain Score (Numeric/FACES): 8 - Related Data Allergies Allergy/AdvReac Type Severity Reaction Status Date / Time amoxicillin Allergy Blisters Verified 02/08/21 12:01 Penicillins Allergy Blisters Verified 02/08/21 12:01 solifenacin Allergy Nausea Verified 02/08/21 12:01 tamsulosin [From Flomax] Allergy Cannot Verified 02/08/21 12:01 Remember Home Meds: Home Meds Simvastatin 20 mg PO BEDTIME 02/19/16 [History] Ascorbic Acid [Vitamin C] 1,000 mg PO DAILY 06/08/18 [History] Calcium Carbonate/Vitamin D3 [Calcium 600 + Vit D 200] 600 tab PO BID 06/08/18 [History] Acetaminophen 500 mg PO Q4H PRN 07/02/18 [History] Cholecalciferol (Vitamin D3) [Vitamin D3] 5,000 units PO DAILY 07/06/19 [History] Docusate Sodium 300 mg PO DAILY 07/06/19 [History] Enzalutamide [Xtandi] 80 mg PO BEDTIME 07/06/19 [History] Ferrous Gluconate [Fergon] 270 mg PO DAILY 07/06/19 [History] Sertraline [Zoloft] 75 mg PO DAILY 07/06/19 [History] Denosumab [Xgeva] 120 mg SUBCUT .MONTHLY 01/21/20 [History] Losartan [Cozaar] 25 mg PO DAILY 08/01/20 [History] Multivitamin 1 tab PO DAILY 09/30/20 [History] Acetaminophen/oxyCODONE [Percocet 325-5 MG] 1 - 2 each PO Q6H PRN 02/08/21 [History] Ondansetron [Zofran ODT] 4 mg PO Q6H PRN 02/08/21 [History] Past Medical History HEENT History: Reports: Cataract, Impaired Vision Other HEENT History: glasses Cardiovascular History: Reports: High Cholesterol, Hypertension Other Cardiovascular History: left ventricular hypertrophy Respiratory History: Reports: None Gastrointestinal History: Reports: Diverticulosis, Hemorrhoids, Other (See Below) Other Gastrointestinal History: sigmoid colon ulcer (radiation induced) Genitourinary History: Reports: Chronic Renal Insuffiency, Renal Calculus, Urinary Incontinence, Other (See Below) Other Genitourinary History: cyst on kidneys Musculoskeletal History: Reports: Fracture, Other (See Below) Other Musculoskeletal History: HX OF R WRIST FRACTURE. Osseous metastasis, right pubic ramus. Neurological History: Reports: None Psychiatric History: Reports: Anxiety, Depression Endocrine/Metabolic History: Reports: None Hematologic History: Reports: Anemia Immunologic History: Reports: Immunosuppression Oncologic (Cancer) History: Reports: Bone, Lymphoma, Metastatic, Prostate, Other (See Below) Other Oncologic History: prostate cancer Dermatologic History: Reports: Other (See Below) Other Dermatologic History: over ears possible skin cancer - Infectious Disease History Infectious Disease History: Reports: Chicken Pox, Measles, Mumps - Past Surgical History Head Surgeries/Procedures: Reports: None HEENT Surgical History: Reports: None, Cataract Surgery Other HEENT Surgeries/Procedures: central serrous retanopothy. Cardiovascular Surgical History: Reports: None Respiratory Surgical History: Reports: None GI Surgical History: Reports: Colonoscopy, Other (See Below) Other GI Surgeries/Procedures: ventral hernia Male Surgical History: Reports: Ureteral Stent, Other (See Below) Other Male Surgeries/Procedures: orchiectomy. turp (vaporization) Neurological Surgical History: Reports: None Musculoskeletal Surgical History: Reports: None Oncologic Surgical History: Reports: None Social & Family History - Family History Family Medical History: No Pertinent Family History - Caffeine Use Caffeine Use: Reports: None Other Caffeine Use: 2 cups coffee /day. mountain dew - Living Situation & Occupation Living situation: Reports: , with Spouse Occupation: Retired ED ROS GENERAL - Review of Systems Review Of Systems: Comprehensive ROS is negative, except as noted in HPI. ED EXAM, RENAL/ - Physical Exam Exam: See Below Exam Limited By: No Limitations General Appearance: Alert, WD/WN, Mild Distress Eye Exam: Bilateral Eye: EOMI, Normal Inspection, PERRL Ears: Normal External Exam, Normal Canal, Hearing Grossly Normal, Normal TMs Nose: Normal Inspection, Normal Mucosa, No Blood Throat/Mouth: Normal Inspection, Normal Lips, Normal Teeth, Normal Gums, Normal Oropharynx, Normal Voice, No Airway Compromise Head: Atraumatic, Normocephalic Neck: Normal Inspection, Supple, Non-Tender, Full Range of Motion Respiratory/Chest: No Respiratory Distress, Lungs Clear, Normal Breath Sounds, No Accessory Muscle Use, Chest Non-Tender Cardiovascular: Normal Peripheral Pulses, Regular Rate, Rhythm, No Edema, No Gallop, No JVD, No Murmur, No Rub GI/Abdominal: Normal Bowel Sounds, Soft, No Organomegaly, No Distention, No Abnormal Bruit, No Mass, Pelvis Stable, Tender (mild lower abdominal tenderness to palpation) (Male) Exam: Deferred Rectal (Males) Exam: Deferred Back Exam: Normal Inspection, Full Range of Motion, NT Extremities: Normal Inspection, Normal Range of Motion, Non-Tender, Normal Capillary Refill, No Pedal Edema Neurological: Alert, Oriented, CN II-XII Intact, Normal Cognition, Normal Gait, Normal Reflexes, No Motor/Sensory Deficits Psychiatric: Normal Affect, Normal Mood Skin Exam: Warm, Dry, Intact, Normal Color, No Rash Lymphatic: No Adenopathy Course - Vital Signs Last Recorded V/S: Last Vital Signs Temp 96.0 F L 02/08/21 11:20 Pulse 82 02/08/21 11:20 Resp 20 02/08/21 11:20 BP 124/62 02/08/21 11:20 Pulse Ox 95 02/08/21 11:20 - Orders/Labs/Meds Orders: Active Orders 24 hr Category Date Time Status CULTURE BLOOD [BC] Stat Lab 02/08/21 11:35 Received CULTURE URINE [RM] Urgent Lab 02/08/21 11:49 Received Labs: Laboratory Tests 02/08/21 02/08/21 02/08/21 Range/Units 11:35 11:35 11:35 WBC 12.6 H (5.0-10.0) 10^3/uL RBC 3.29 L (4.6-6.2) 10^6/uL Hgb 11.3 L (14.0-18.0) g/dL Hct 34.0 L (40.0-54.0) % MCV 103.3 H (80-100) fL MCH 34.3 H (27.0-34.0) pg MCHC 33.2 (33.0-35.0) g/dL Plt Count 208 (150-450) 10^3/uL Neut % (Auto) 93.7 H (42.2-75.2) % Lymph % (Auto) 1.4 L (20.5-50.1) % [place] % (Auto) 4.7 (2-8) % Eos % (Auto) 0.1 L (1.0-3.0) % Baso % (Auto) 0.1 (0.0-1.0) % Sodium 140 (136-145) mmol/L Potassium 4.0 (3.5-5.1) mmol/L Chloride 102 (98-107) mmol/L Carbon Dioxide 25 (21-32) mmol/L Anion Gap 17.0 H (7-13) mEq/L BUN 23 H (7-18) mg/dL Creatinine 2.09 H (0.70-1.30) mg/dL Est Cr Clr Drug Dosing 31.48 mL/min Estimated GFR (MDRD) 31 BUN/Creatinine Ratio 11.0 (No establ ref range) Glucose 166 H (70-99) mg/dL Lactic Acid 1.9 (0.4-2.0) mmol/L Calcium 8.7 (8.5-10.1) mg/dL Total Bilirubin 0.6 (0.2-1.0) mg/dL AST 13 L (15-37) U/L ALT 18 (16-63) U/L Alkaline Phosphatase 62 (46-116) U/L Total Protein 7.1 (6.4-8.2) g/dL Albumin 3.2 L (3.4-5.0) g/dL Globulin 3.9 Albumin/Globulin Ratio 0.82 Urine Color (YELLOW) Urine Appearance (CLEAR) Urine pH (5.0-9.0) Ur Specific [place] (1.005-1.030) Urine Protein (NEGATIVE) Urine Glucose (UA) (NEGATIVE) Urine Ketones (NEGATIVE) Urine Occult Blood (NEGATIVE) Urine Nitrite (NEGATIVE) Urine Bilirubin (NEGATIVE) Urine Urobilinogen (0.2-1.0) mg/dL Ur Leukocyte Esterase (NEGATIVE) Urine RBC /HPF Urine WBC (0-5/HPF) /HPF Ur Epithelial Cells (NOT SEEN) /HPF Urine Bacteria (0-FEW/HPF) /HPF 02/08/21 Range/Units 11:49 WBC (5.0-10.0) 10^3/uL RBC (4.6-6.2) 10^6/uL Hgb (14.0-18.0) g/dL Hct (40.0-54.0) % MCV (80-100) fL MCH (27.0-34.0) pg MCHC (33.0-35.0) g/dL Plt Count (150-450) 10^3/uL Neut % (Auto) (42.2-75.2) % Lymph % (Auto) (20.5-50.1) % [place] % (Auto) (2-8) % Eos % (Auto) (1.0-3.0) % Baso % (Auto) (0.0-1.0) % Sodium (136-145) mmol/L Potassium (3.5-5.1) mmol/L Chloride (98-107) mmol/L Carbon Dioxide (21-32) mmol/L Anion Gap (7-13) mEq/L BUN (7-18) mg/dL Creatinine (0.70-1.30) mg/dL Est Cr Clr Drug Dosing mL/min Estimated GFR (MDRD) BUN/Creatinine Ratio (No establ ref range) Glucose (70-99) mg/dL Lactic Acid (0.4-2.0) mmol/L Calcium (8.5-10.1) mg/dL Total Bilirubin (0.2-1.0) mg/dL AST (15-37) U/L ALT (16-63) U/L Alkaline Phosphatase (46-116) U/L Total Protein (6.4-8.2) g/dL Albumin (3.4-5.0) g/dL Globulin Albumin/Globulin Ratio Urine Color Dark yellow (YELLOW) Urine Appearance Turbid (CLEAR) Urine pH 6.5 (5.0-9.0) Ur Specific [place] 1.025 (1.005-1.030) Urine Protein >=300 H (NEGATIVE) Urine Glucose (UA) Negative (NEGATIVE) Urine Ketones Negative (NEGATIVE) Urine Occult Blood Large H (NEGATIVE) Urine Nitrite Positive H (NEGATIVE) Urine Bilirubin Negative (NEGATIVE) Urine Urobilinogen 1.0 (0.2-1.0) mg/dL Ur Leukocyte Esterase Large H (NEGATIVE) Urine RBC Packed H /HPF Urine WBC Packed H (0-5/HPF) /HPF Ur Epithelial Cells Not seen (NOT SEEN) /HPF Urine Bacteria Many H (0-FEW/HPF) /HPF Meds: Medications Discontinued Medications Generic Name Dose Route Start Last Admin Trade Name Freq PRN Reason Stop Dose Admin Diphenhydramine HCl 25 mg 02/08/21 12:32 02/08/21 12:37 Diphenhydramine 50 Mg/Ml Sdv IVPUSH 02/08/21 12:33 25 mg ONETIME ONE Administration Levofloxacin/Dextrose 500 mg/ 100 mls @ 100 mls/hr 02/08/21 12:10 02/08/21 12:28 Premix IV 02/08/21 13:09 100 mls/hr ONETIME ONE Administration Cefoxitin Sodium 1 gm/ Sodium 50 mls @ 100 mls/hr 02/08/21 12:37 02/08/21 12:55 Chloride IV 02/08/21 13:06 100 mls/hr ONETIME ONE Administration - Re-Assessments/Exams Free Text/Narrative Re-Assessment/Exam: 02/08/21 12:57 Within seconds of the Levaquin IV dose starting, the patient started to develop erythema to the area of the IV start. Levaquin was stopped immediately. The patient was started on a 2nd Generation cephalosporin. Departure - Departure Time of Disposition: 13:42 Disposition: Home, Self-Care 01 Condition: Fair Clinical Impression: UTI, Urinary tract infectious disease - Discharge Information *PRESCRIPTION DRUG MONITORING PROGRAM REVIEWED*: Not Applicable *COPY OF PRESCRIPTION DRUG MONITORING REPORT IN PATIENT JALIL: Not Applicable Instructions: Urinary Tract Infection, Adult, [id number] Forms: ED Department Discharge Care Plan Goals: The patient and his were advised of the examination and lab results during the visit. The patient was given an IV dose of Cefoxitin while in the ED. The patient was discharged with a script for Cefuroxime Axetil (250 mg) to take 1 by mouth 2 times per day for 7 days. The patient was encouraged to increase his oral fluid intake. The patient was encouraged to follow-up with his specialist on Monday as scheduled. If the patient has any additional symptoms or concerns, the patient should either return to the emergency department or visit his primary care facility. Sepsis Event Note (ED) - Focused Exam Vital Signs: Vital Signs Temp Pulse Resp BP Pulse Ox 02/08/21 11:20 96.0 F L 82 20 124/62 95 - My Orders Last 24 Hours: My Active Orders 02/08/21 11:35 CULTURE BLOOD [BC] Stat 02/08/21 11:49 CULTURE URINE [RM] Urgent - Assessment/Plan Last 24 Hours: My Active Orders 02/08/21 11:35 CULTURE BLOOD [BC] Stat 02/08/21 11:49 CULTURE URINE [RM] Urgent
[2021-02-08 11:28] VITALS: BP 124/62; PULSE 82
[2021-02-08] MEDS ORDERED: Levofloxacin/Dextrose 5%-Water 500 MG in Premix Bag 1 BAG IV ONE (12:10)
[2021-02-08] MEDS ORDERED: diphenhydrAMINE 50 MG/ML SDV IVPUSH ONE (12:32)
== END 2021-02-08 14:05 | disposition home or self-care (01) ==
LOC: DL.ED 11:09
DX: N39.0 Urinary tract infection, site not specified (principal); E78.00 Pure hypercholesterolemia, unspecified; I12.9 Hypertensive chronic kidney disease with stage 1 through stage 4 chronic kidney disease, or unspecified chronic kidney disease; N18.9 Chronic kidney disease, unspecified; Z88.0 Allergy status to penicillin; Z88.8 Allergy status to other drugs, medicaments and biological substances; Z79.899 Other long term (current) drug therapy
CPT/HCPCS: 36415; 80053; 81001; 83605; 85025; 87040; 87086; 87088; 87186; 96365; 96375; 99283; 99283-25; J0694; J1200; J1956

== ENCOUNTER 2021-02-13 00:50 | Emergency (ER) | payer MEDICARE, OTHER ==
[2021-02-13 01:55] VITALS: BP 177/82; PULSE 70
[2021-02-13] MEDS ORDERED: Sodium Chloride 0.9% 1,000 ML IV ONE (02:08)
[2021-02-13] MEDS ORDERED: HYDROmorphone 0.5 MG/0.5 ML Syringe IVPUSH ONE ×3 (02:08→04:03)
[2021-02-13] MEDS ORDERED: Lidocaine 2% Jelly 10 ML Urojet MUCMEM ONE (02:14)
[2021-02-13] MEDS ORDERED: Lidocaine 2% Jelly 10 ML Urojet ONE (02:16)
--- NOTE | 2021-02-13 02:17 | EDM.PDOC ---
ED HPI GENERAL MEDICAL PROBLEM - General Chief Complaint: Genitourinary Problem Stated Complaint: Can't pass urine Time Seen by Provider: 02/13/21 02:05 Source of Information: Reports: Patient History Limitations: Reports: No Limitations - History of Present Illness INITIAL COMMENTS - FREE TEXT/NARRATIVE: This 75 yo male patient reports to the ED due to difficulties passing urine. The patient had to strain to have a bowel movement yesterday, but when he strains to have a bowel movement he gets increased blood in his urine. The patient has strained and passed several clots, but continues to have pain and difficulties urinating. The patient did have an appointment on Monday with his urologist. His urologist is working on getting the patient to get urostomy tubes placed through the [facility]. Onset: Today Duration: Constant Location: Reports: Abdomen Quality: Reports: Other Severity: Moderate Improves with: Reports: None Worsens with: Reports: None Context: Reports: Other Associated Symptoms: Reports: No Other Symptoms - Related Data Allergies Allergy/AdvReac Type Severity Reaction Status Date / Time amoxicillin Allergy Blisters Verified 02/08/21 12:01 Penicillins Allergy Blisters Verified 02/08/21 12:01 solifenacin Allergy Nausea Verified 02/08/21 12:01 tamsulosin [From Flomax] Allergy Cannot Verified 02/08/21 12:01 Remember Home Meds: Home Meds Simvastatin 20 mg PO BEDTIME 02/19/16 [History] Ascorbic Acid [Vitamin C] 1,000 mg PO DAILY 06/08/18 [History] Calcium Carbonate/Vitamin D3 [Calcium 600 + Vit D 200] 600 tab PO BID 06/08/18 [History] Acetaminophen 500 mg PO Q4H PRN 07/02/18 [History] Cholecalciferol (Vitamin D3) [Vitamin D3] 5,000 units PO DAILY 07/06/19 [History] Docusate Sodium 300 mg PO DAILY 07/06/19 [History] Enzalutamide [Xtandi] 80 mg PO BEDTIME 07/06/19 [History] Ferrous Gluconate [Fergon] 270 mg PO DAILY 07/06/19 [History] Sertraline [Zoloft] 75 mg PO DAILY 07/06/19 [History] Denosumab [Xgeva] 120 mg SUBCUT .MONTHLY 01/21/20 [History] Losartan [Cozaar] 25 mg PO DAILY 08/01/20 [History] Multivitamin 1 tab PO DAILY 09/30/20 [History] Acetaminophen/oxyCODONE [Percocet 325-5 MG] 1 - 2 each PO Q6H PRN 02/08/21 [History] Ondansetron [Zofran ODT] 4 mg PO Q6H PRN 02/08/21 [History] Past Medical History HEENT History: Reports: Cataract, Impaired Vision Other HEENT History: glasses Cardiovascular History: Reports: High Cholesterol, Hypertension Other Cardiovascular History: left ventricular hypertrophy Respiratory History: Reports: None Gastrointestinal History: Reports: Diverticulosis, Hemorrhoids, Other (See Below) Other Gastrointestinal History: sigmoid colon ulcer (radiation induced) Genitourinary History: Reports: Chronic Renal Insuffiency, Renal Calculus, Urinary Incontinence, Other (See Below) Other Genitourinary History: cyst on kidneys Musculoskeletal History: Reports: Fracture, Other (See Below) Other Musculoskeletal History: HX OF R WRIST FRACTURE. Osseous metastasis, right pubic ramus. Neurological History: Reports: None Psychiatric History: Reports: Anxiety, Depression Endocrine/Metabolic History: Reports: None Hematologic History: Reports: Anemia Immunologic History: Reports: Immunosuppression Oncologic (Cancer) History: Reports: Bone, Lymphoma, Metastatic, Prostate, Other (See Below) Other Oncologic History: prostate cancer Dermatologic History: Reports: Other (See Below) Other Dermatologic History: over ears possible skin cancer - Infectious Disease History Infectious Disease History: Reports: Chicken Pox, Measles, Mumps - Past Surgical History Head Surgeries/Procedures: Reports: None HEENT Surgical History: Reports: None, Cataract Surgery Other HEENT Surgeries/Procedures: central serrous retanopothy. Cardiovascular Surgical History: Reports: None Respiratory Surgical History: Reports: None GI Surgical History: Reports: Colonoscopy, Other (See Below) Other GI Surgeries/Procedures: ventral hernia Male Surgical History: Reports: Ureteral Stent, Other (See Below) Other Male Surgeries/Procedures: orchiectomy. turp (vaporization) Neurological Surgical History: Reports: None Musculoskeletal Surgical History: Reports: None Oncologic Surgical History: Reports: None Social & Family History - Family History Family Medical History: No Pertinent Family History - Tobacco Use Tobacco Use Status *Q: Never Tobacco User Second Hand Smoke Exposure: No - Caffeine Use Caffeine Use: Reports: Coffee Other Caffeine Use: 2 cups coffee /day. mountain dew - Living Situation & Occupation Living situation: Reports: , with Spouse Occupation: Retired ED ROS GENERAL - Review of Systems Review Of Systems: Comprehensive ROS is negative, except as noted in HPI. ED EXAM, RENAL/ - Physical Exam Exam: See Below Exam Limited By: No Limitations General Appearance: Alert, WD/WN, Moderate Distress Eye Exam: Bilateral Eye: EOMI, Normal Inspection, PERRL Ears: Normal External Exam, Normal Canal, Hearing Grossly Normal, Normal TMs Nose: Normal Inspection, Normal Mucosa, No Blood Throat/Mouth: Normal Inspection, Normal Lips, Normal Teeth, Normal Gums, Normal Oropharynx, Normal Voice, No Airway Compromise Head: Atraumatic, Normocephalic Neck: Normal Inspection, Supple, Non-Tender, Full Range of Motion Respiratory/Chest: No Respiratory Distress, Lungs Clear, Normal Breath Sounds, No Accessory Muscle Use, Chest Non-Tender Cardiovascular: Normal Peripheral Pulses, Regular Rate, Rhythm, No Edema, No Gallop, No JVD, No Murmur, No Rub GI/Abdominal: Normal Bowel Sounds, Soft, No Organomegaly, No Distention, No Abnormal Bruit, No Mass, Pelvis Stable, Tender (lower abdomen) (Male) Exam: Deferred Rectal (Males) Exam: Deferred Back Exam: Normal Inspection, Full Range of Motion, NT Extremities: Normal Inspection, Normal Range of Motion, Non-Tender, Normal Capillary Refill, No Pedal Edema Neurological: Alert, Oriented, CN II-XII Intact, Normal Cognition, Normal Gait, Normal Reflexes, No Motor/Sensory Deficits Psychiatric: Normal Affect, Normal Mood Skin Exam: Warm, Dry, Intact, Normal Color, No Rash Lymphatic: No Adenopathy Course - Vital Signs Last Recorded V/S: Last Vital Signs Temp 97.6 F 02/13/21 01:52 Pulse 70 02/13/21 01:52 Resp 18 02/13/21 01:52 BP 177/82 H 02/13/21 01:52 Pulse Ox 97 02/13/21 01:52 - Orders/Labs/Meds Labs: Laboratory Tests 02/13/21 02/13/21 Range/Units 03:18 03:18 WBC 10.1 H (5.0-10.0) 10^3/uL RBC 3.14 L (4.6-6.2) 10^6/uL Hgb 10.5 L (14.0-18.0) g/dL Hct 31.7 L (40.0-54.0) % MCV 101.0 H (80-100) fL MCH 33.4 (27.0-34.0) pg MCHC 33.1 (33.0-35.0) g/dL Plt Count 237 (150-450) 10^3/uL Neut % (Auto) 91.3 H (42.2-75.2) % Lymph % (Auto) 2.4 L (20.5-50.1) % [place] % (Auto) 5.8 (2-8) % Eos % (Auto) 0.3 L (1.0-3.0) % Baso % (Auto) 0.2 (0.0-1.0) % Sodium 144 (136-145) mmol/L Potassium 4.6 (3.5-5.1) mmol/L Chloride 105 (98-107) mmol/L Carbon Dioxide 24 (21-32) mmol/L Anion Gap 19.6 H (7-13) mEq/L BUN 30 H (7-18) mg/dL Creatinine 1.97 H (0.70-1.30) mg/dL Est Cr Clr Drug Dosing TNP Estimated GFR (MDRD) 33 BUN/Creatinine Ratio 15.2 (No establ ref range) Glucose 166 H (70-99) mg/dL Calcium 8.4 L (8.5-10.1) mg/dL Total Bilirubin 0.4 (0.2-1.0) mg/dL AST 12 L (15-37) U/L ALT 21 (16-63) U/L Alkaline Phosphatase 61 (46-116) U/L Total Protein 7.0 (6.4-8.2) g/dL Albumin 2.9 L (3.4-5.0) g/dL Globulin 4.1 Albumin/Globulin Ratio 0.71 Meds: Medications Discontinued Medications Generic Name Dose Route Start Last Admin Trade Name Freq PRN Reason Stop Dose Admin Hydromorphone HCl 0.5 mg 02/13/21 02:08 02/13/21 02:19 Hydromorphone 0.5 Mg/0.5 Ml Syringe IVPUSH 02/13/21 02:09 0.5 mg ONETIME ONE Administration Hydromorphone HCl 0.5 mg 02/13/21 02:49 02/13/21 02:55 Hydromorphone 0.5 Mg/0.5 Ml Syringe IVPUSH 02/13/21 02:50 0.5 mg ONETIME ONE Administration Hydromorphone HCl 0.5 mg 02/13/21 04:03 Hydromorphone 0.5 Mg/0.5 Ml Syringe IVPUSH 02/13/21 04:04 ONETIME ONE Sodium Chloride 1,000 mls @ 999 mls/hr 02/13/21 02:08 02/13/21 02:19 Normal Saline IV 02/13/21 03:08 999 mls/hr .BOLUS ONE Administration Lidocaine HCl 10 ml 02/13/21 02:14 02/13/21 02:20 Lidocaine 2% Jelly 10 Ml Urojet MUCMEM 02/13/21 02:15 10 ml ONETIME ONE Administration Lidocaine HCl Confirm 02/13/21 02:16 02/13/21 02:20 Lidocaine 2% Jelly 10 Ml Urojet Administered 02/13/21 02:17 Not Given Dose 10 ml .ROUTE .STK-MED ONE Lorazepam 0.5 mg 02/13/21 03:20 02/13/21 03:37 Lorazepam 2 Mg/Ml Sdv IVPUSH 02/13/21 03:21 0.5 mg ONETIME ONE Administration Departure - Departure Time of Disposition: 04:05 Disposition: DC/Tfer to [facility] 02 Condition: Serious Clinical Impression: Gross hematuria - Discharge Information *PRESCRIPTION DRUG MONITORING PROGRAM REVIEWED*: Not Applicable *COPY OF PRESCRIPTION DRUG MONITORING REPORT IN PATIENT JALIL: Not Applicable Forms: Interfacility Transfer EMTALA Care Plan Goals: Discussed the patient's history, examination, lab and treatments with Dr. Tomlin (Hospitalist with [facility] in [place]). Dr. Tomlin accepted the patient for continued evaluation and management at their facility. The patient will be transported by [facility]. Sepsis Event Note (ED) - Evaluation Sepsis Screening Result: No Definite Risk - Focused Exam Vital Signs: Vital Signs Temp Pulse Resp BP Pulse Ox 02/13/21 01:52 97.6 F 70 18 177/82 H 97
[2021-02-13] MEDS ORDERED: LORazepam 2 MG/ML SDV IVPUSH ONE (03:20)
[2021-02-13 03:43] LABS: ANION GAP 19.6 mEq/L (7-13); CHLORIDE,CL 105 mmol/L (98-107); SODIUM,NA 144 mmol/L (136-145)
== END 2021-02-13 04:40 ==
LOC: DL.ED 00:50
DX: R31.0 Gross hematuria (principal); E78.00 Pure hypercholesterolemia, unspecified; I12.9 Hypertensive chronic kidney disease with stage 1 through stage 4 chronic kidney disease, or unspecified chronic kidney disease; N18.9 Chronic kidney disease, unspecified; Z88.0 Allergy status to penicillin; Z88.8 Allergy status to other drugs, medicaments and biological substances; Z79.899 Other long term (current) drug therapy
CPT/HCPCS: 36415; 51798; 80053; 85025; 96374; 96375; 96376; 99284; J1170; J2060; J7030

== ENCOUNTER 2021-03-28 21:03 | Inpatient (IN) | payer MEDICARE, OTHER ==
[2021-03-28] MEDS ORDERED: Ondansetron 4 MG/2 ML SDV IVPUSH ONE (21:40)
[2021-03-28] MEDS ORDERED: Sodium Chloride 0.9% 1,000 ML IV ONE (21:40)
[2021-03-28] MEDS ORDERED: HYDROmorphone 1 MG/ML Syringe IVPUSH ONE (21:40)
[2021-03-28] MEDS ORDERED: Iopamidol 612 MG/ML 100 ML Bottle IVPUSH ONE (22:50)
--- NOTE | 2021-03-29 00:03 | CR ---
PROCEDURE INFORMATION: Exam: XR Chest Exam date and time: 03/28/2021 10:28 PM Age: 75 years old Clinical indication: Other: Tube placement; Additional info: Id if the tube is coiled TECHNIQUE: Imaging protocol: XR of the chest. Views: 1 view. COMPARISON: CR Abdomen 1V Upright 03/28/2021 10:10 PM FINDINGS: Tubes, catheters and devices: Gastric suction tube in good position Bones/joints: Unremarkable. Gastrointestinal tract: Multiple loops of distended small bowel are seen compatible with obstruction. IMPRESSION: 1. Gastric suction tube in good position 2. Multiple loops of distended small bowel are seen compatible with obstruction.
--- NOTE | 2021-03-29 00:04 | CR ---
PROCEDURE INFORMATION: Exam: XR Abdomen Exam date and time: 03/28/2021 10:10 PM Age: 75 years old Clinical indication: Other: Pain/distention; Additional info: Confirm ng/og tube placement TECHNIQUE: Imaging protocol: XR of the abdomen. Views: Frontal supine view of the abdomen. 1 View. COMPARISON: CT Abdomen Pelvis w Cont 03/10/2021 9:55 AM FINDINGS: Tubes, catheters and devices: Gastric suction tube in good position Gastrointestinal tract: Multiple loops of distended small bowel are seen compatible with obstruction. Bones/joints: Unremarkable. IMPRESSION: Gastric suction tube in good position Multiple loops of distended small bowel are seen compatible with obstruction.
--- NOTE | 2021-03-29 00:08 | CT ---
PROCEDURE INFORMATION: Exam: CT Abdomen And Pelvis With Contrast Exam date and time: 03/28/2021 11:31 PM Age: 75 years old Clinical indication: Other: Obstruction; Additional info: Obstruction, cancer HX, TECHNIQUE: Imaging protocol: Computed tomography of the abdomen and pelvis with contrast. Radiation optimization: All CT scans at this facility use at least one of these dose optimization techniques: automated exposure control; mA and/or kV adjustment per patient size (includes targeted exams where dose is matched to clinical indication); or iterative reconstruction. Contrast material: [id number]; Contrast volume: 100 ml; Contrast route: INTRAVENOUS (IV); COMPARISON: CT Abdomen Pelvis w Cont 03/10/2021 9:55 AM FINDINGS: Tubes, catheters and devices: Gastric suction tube is in place. The stomach is moderately distended. Lungs: [id number] bilateral atelectasis or scarring. Small right pleural effusion Heart: Mild cardiac enlargement. Liver: Normal. No mass. Gallbladder and bile ducts: Normal. No calcified stones. No ductal dilation. Pancreas: Normal. No ductal dilation. Spleen: Normal. No splenomegaly. Adrenal glands: Normal. No mass. Kidneys and ureters: Renal hypodensities are similar to prior and are most likely benign cysts. Stomach and bowel: Multiple moderately dilated loops of small bowel are seen. There appears to be a transition point in the right lower quadrant. See axial image 134 of series 2 and coronal image 60 of series 3. No pneumatosis. Appendix: No evidence of appendicitis. Intraperitoneal space: Small volume free fluid in the abdomen. Vasculature: Coronary artery calcifications. Lymph nodes: Enlarged retroperitoneal lymph nodes again seen. Alternatively, this could be a venous varix or lymphocele. See image 105 of series 2. No significant change. Urinary bladder: Bladder demonstrates wall thickening. However, this is probably due to under distention. Reproductive: There appear to be postsurgical changes in the prostate. Bones/joints: Sclerotic lesion in the right femoral neck may represent a metastatic deposit. This was mentioned on prior. Soft tissues: Unremarkable. IMPRESSION: 1. Moderate small-bowel obstruction with the probable transition point in the right lower quadrant. Small volume free fluid is likely related. 2. Gastric suction tube terminates in good position, but the stomach remains distended 3. Small right pleural effusion
--- NOTE | 2021-03-29 01:48 | EDM.PDOC ---
ED HPI GENERAL MEDICAL PROBLEM - General Chief Complaint: Abdominal Pain Stated Complaint: FULL OF GAS AND CANNOT GET RID OF IT Time Seen by Provider: 03/28/21 21:20 Source of Information: Reports: Patient, Family History Limitations: Reports: No Limitations - History of Present Illness INITIAL COMMENTS - FREE TEXT/NARRATIVE: ED with c/o nausea abdominal distension/bloating pain -02/23. Emesis x 1 today. Taking zofran . 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 Recent abdominal exploratory surgery03/17 at [facility] with intended goal of removal of bladder and place urostomy. Removal of bladder desired due to recurrent bleeding following radiation to prostate. stated to many adhesions and question of additional mass so surgery cancelled and patient closed. Developed "slow bowel and NG placed on 03/22. was removed and placed again. Patient admitted to leaving AMA on 03/26. Samall amount solids on Monday and Monday twinkie and few peaches. Bowel movements on Monday nothing on Monday. no fever. No urinary c/o. Uses condom catheter or depends. Rarely self caths if feels like bladder not emptying. Abdomen Pain Score (Numeric/FACES): 7 - Related Data Allergies Allergy/AdvReac Type Severity Reaction Status Date / Time amoxicillin Allergy Blisters Verified 02/08/21 12:01 Penicillins Allergy Blisters Verified 02/08/21 12:01 solifenacin Allergy Nausea Verified 02/08/21 12:01 tamsulosin [From Flomax] Allergy Cannot Verified 02/08/21 12:01 Remember Home Meds: Home Meds Simvastatin 20 mg PO BEDTIME 02/19/16 [History] Ascorbic Acid [Vitamin C] 1,000 mg PO DAILY 06/08/18 [History] Calcium Carbonate/Vitamin D3 [Calcium 600 + Vit D 200] 600 tab PO BID 06/08/18 [History] Acetaminophen 500 mg PO Q4H PRN 07/02/18 [History] Cholecalciferol (Vitamin D3) [Vitamin D3] 5,000 units PO DAILY 07/06/19 [History] Docusate Sodium 300 mg PO DAILY 07/06/19 [History] Enzalutamide [Xtandi] 80 mg PO BEDTIME 07/06/19 [History] Ferrous Gluconate [Fergon] 270 mg PO DAILY 07/06/19 [History] Sertraline [Zoloft] 75 mg PO DAILY 07/06/19 [History] Denosumab [Xgeva] 120 mg SUBCUT .MONTHLY 01/21/20 [History] Losartan [Cozaar] 25 mg PO DAILY 08/01/20 [History] Multivitamin 1 tab PO DAILY 09/30/20 [History] Acetaminophen/oxyCODONE [Percocet 325-5 MG] 1 - 2 each PO Q6H PRN 02/08/21 [History] Ondansetron [Zofran ODT] 4 mg PO Q6H PRN 02/08/21 [History] Past Medical History HEENT History: Reports: Cataract, Impaired Vision Other HEENT History: glasses Cardiovascular History: Reports: High Cholesterol, Hypertension Other Cardiovascular History: left ventricular hypertrophy Respiratory History: Reports: None Gastrointestinal History: Reports: Diverticulosis, Hemorrhoids, Other (See Below) Other Gastrointestinal History: sigmoid colon ulcer (radiation induced) Genitourinary History: Reports: Chronic Renal Insuffiency, Renal Calculus, Urinary Incontinence, Other (See Below) Other Genitourinary History: cyst on kidneys Musculoskeletal History: Reports: Fracture, Other (See Below) Other Musculoskeletal History: HX OF R WRIST FRACTURE. Osseous metastasis, right pubic ramus. Neurological History: Reports: None Psychiatric History: Reports: Anxiety, Depression Endocrine/Metabolic History: Reports: None Hematologic History: Reports: Anemia Immunologic History: Reports: Immunosuppression Oncologic (Cancer) History: Reports: Bone, Lymphoma, Metastatic, Prostate, Other (See Below) Other Oncologic History: prostate cancer Dermatologic History: Reports: Other (See Below) Other Dermatologic History: over ears possible skin cancer - Infectious Disease History Infectious Disease History: Reports: Chicken Pox, Measles, Mumps - Past Surgical History Head Surgeries/Procedures: Reports: None HEENT Surgical History: Reports: None, Cataract Surgery Other HEENT Surgeries/Procedures: central serrous retanopothy. Cardiovascular Surgical History: Reports: None Respiratory Surgical History: Reports: None GI Surgical History: Reports: Colonoscopy, Other (See Below) Other GI Surgeries/Procedures: ventral hernia Male Surgical History: Reports: Ureteral Stent, Other (See Below) Other Male Surgeries/Procedures: orchiectomy. turp (vaporization) Neurological Surgical History: Reports: None Musculoskeletal Surgical History: Reports: None Oncologic Surgical History: Reports: None Social & Family History - Family History Family Medical History: No Pertinent Family History - Tobacco Use Tobacco Use Status *Q: Never Tobacco User Second Hand Smoke Exposure: No - Caffeine Use Caffeine Use: Reports: Coffee Other Caffeine Use: 2 cups coffee /day. mountain dew - Recreational Drug Use Recreational Drug Use: No - Living Situation & Occupation Living situation: Reports: , with Spouse Occupation: Retired ED ROS GENERAL - Review of Systems Review Of Systems: Comprehensive ROS is negative, except as noted in HPI. ED EXAM, GI/ABD - Physical Exam Exam: See Below Exam Limited By: No Limitations General Appearance: Alert, No Apparent Distress Eyes: Bilateral: Normal Appearance Ears: Normal External Exam Nose: Normal Inspection Throat/Mouth: Normal Inspection Head: Atraumatic, Normocephalic Neck: Normal Inspection, Non-Tender Respiratory/Chest: No Respiratory Distress, Lungs Clear, Normal Breath Sounds Cardiovascular: Normal Peripheral Pulses, Regular Rate, Rhythm, Tachycardia GI/Abdominal Exam: Distended, Rigid, Tender, Abnormal Bowel Sounds (rare distant). No: Normal Bowel Sounds, Guarding, Rebound Back Exam: Normal Inspection, Full Range of Motion Extremities: Normal Inspection Neurological: Alert, Oriented, Normal Cognition Skin Exam: Warm, Dry, Intact, Normal Color, Wound/Incision (midline surgical abdominal incision CDI no redness) Course - Vital Signs Last Recorded V/S: Last Vital Signs Temp 97.9 F 03/28/21 21:15 Pulse 107 H 03/28/21 21:15 Resp 16 03/28/21 21:15 BP 155/97 H 03/28/21 21:15 Pulse Ox 94 L 03/28/21 21:15 - Orders/Labs/Meds Orders: Active Orders 24 hr Category Date Time Status Admission Diagnosis [ADT] Stat ADT 03/29/21 02:35 Ordered Patient Status [ADT] Routine ADT 03/29/21 02:35 Active Gastrointestinal Tube Mgmt [RC] ASDIRECTED Care 03/28/21 21:53 Active CULTURE BLOOD [BC] Stat Lab 03/28/21 22:00 Received Sodium Chloride 0.9% [Normal Saline] 1,000 ml Med 03/28/21 21:40 Active IV .BOLUS NG [Nasogastric Orogastric Tube Insertion] [OM.PC] Oth 03/28/21 21:52 Ordered Routine Medication Orders Sodium Chloride (Normal Saline) 1,000 mls @ 150 mls/hr IV .BOLUS ONE Stop: 03/29/21 04:19 Last Admin: 03/28/21 22:07 Dose: 150 mls/hr Documented by: CRISPIN Labs: Laboratory Tests 03/28/21 03/28/21 03/28/21 Range/Units 22:04 22:04 22:04 WBC 6.9 (5.0-10.0) 10^3/uL RBC 3.53 L (4.6-6.2) 10^6/uL Hgb 11.6 L (14.0-18.0) g/dL Hct 35.4 L (40.0-54.0) % MCV 100.3 H (80-100) fL MCH 32.9 (27.0-34.0) pg MCHC 32.8 L (33.0-35.0) g/dL Plt Count 305 (150-450) 10^3/uL Neut % (Auto) 90.3 H (42.2-75.2) % Lymph % (Auto) 2.5 L (20.5-50.1) % Esmeralda % (Auto) 6.2 (2-8) % Eos % (Auto) 0.9 L (1.0-3.0) % Baso % (Auto) 0.1 (0.0-1.0) % Sodium 141 (136-145) mmol/L Potassium 4.0 (3.5-5.1) mmol/L Chloride 106 (98-107) mmol/L Carbon Dioxide 26 (21-32) mmol/L Anion Gap 13.0 (7-13) mEq/L BUN 22 H (7-18) mg/dL Creatinine 1.27 (0.70-1.30) mg/dL Est Cr Clr Drug Dosing 51.80 mL/min Estimated GFR (MDRD) 56 BUN/Creatinine Ratio 17.3 (No establ ref range) Glucose 158 H (70-99) mg/dL Lactic Acid 0.9 (0.4-2.0) mmol/L Calcium 9.4 (8.5-10.1) mg/dL Total Bilirubin 0.4 (0.2-1.0) mg/dL AST 52 H (15-37) U/L ALT 65 H (16-63) U/L Alkaline Phosphatase 61 (46-116) U/L Total Protein 6.9 (6.4-8.2) g/dL Albumin 3.2 L (3.4-5.0) g/dL Globulin 3.7 Albumin/Globulin Ratio 0.86 SARS-CoV-2 RNA (NIRALI) (NEGATIVE) 03/29/21 Range/Units 01:20 WBC (5.0-10.0) 10^3/uL RBC (4.6-6.2) 10^6/uL Hgb (14.0-18.0) g/dL Hct (40.0-54.0) % MCV (80-100) fL MCH (27.0-34.0) pg MCHC (33.0-35.0) g/dL Plt Count (150-450) 10^3/uL Neut % (Auto) (42.2-75.2) % Lymph % (Auto) (20.5-50.1) % Esmeralda % (Auto) (2-8) % Eos % (Auto) (1.0-3.0) % Baso % (Auto) (0.0-1.0) % Sodium (136-145) mmol/L Potassium (3.5-5.1) mmol/L Chloride (98-107) mmol/L Carbon Dioxide (21-32) mmol/L Anion Gap (7-13) mEq/L BUN (7-18) mg/dL Creatinine (0.70-1.30) mg/dL Est Cr Clr Drug Dosing mL/min Estimated GFR (MDRD) BUN/Creatinine Ratio (No establ ref range) Glucose (70-99) mg/dL Lactic Acid (0.4-2.0) mmol/L Calcium (8.5-10.1) mg/dL Total Bilirubin (0.2-1.0) mg/dL AST (15-37) U/L ALT (16-63) U/L Alkaline Phosphatase (46-116) U/L Total Protein (6.4-8.2) g/dL Albumin (3.4-5.0) g/dL Globulin Albumin/Globulin Ratio SARS-CoV-2 RNA (NIRALI) Negative (NEGATIVE) Meds: Medications Generic Name Dose Route Start Last Admin Trade Name Freq PRN Reason Stop Dose Admin Sodium Chloride 1,000 mls @ 150 mls/hr 03/28/21 21:40 03/28/21 22:07 Normal Saline IV 03/29/21 04:19 150 mls/hr .BOLUS ONE Administration Discontinued Medications Generic Name Dose Route Start Last Admin Trade Name Erin DOWELL Reason Stop Dose Admin Hydromorphone HCl 1 mg 03/28/21 21:40 03/28/21 22:07 Hydromorphone 1 Mg/Ml Syringe IVPUSH 03/28/21 21:41 1 mg ONETIME ONE Administration Iopamidol 100 ml 03/28/21 22:50 03/28/21 23:17 Iopamidol 612 Mg/Ml 100 Ml Bottle IVPUSH 03/28/21 22:51 100 ml ONETIME ONE Administration Ondansetron HCl 4 mg 03/28/21 21:40 03/28/21 22:06 Ondansetron 4 Mg/2 Ml Sdv IVPUSH 03/28/21 21:41 4 mg ONETIME ONE Administration - Re-Assessments/Exams Free Text/Narrative Re-Assessment/Exam: 03/29/21 01:43 TC [place], No bed availability . Attempt [facility] One Call . Report waiting list of 40+ patients but will check campus potential. Return call received they are unable to accommodate this patient at any of their campuses. Patient and family notified. TC to [place] 2nd Call. Awaiting call back. VSS patient resting. at bedside. NG in place 1500 total output since insertion. 03/29/21 03:00 TC back from [place] 2nd call No bed availability in state at higher level of care, Recommend trying again later tomorrow. Dr Nikkie FARFAN Hospitalist agree to admit at this time. Departure - Departure Time of Disposition: 03:02 Disposition: Admitted As Inpatient 68 Condition: Undetermined Clinical Impression: SBO (small bowel obstruction), H/O abdominal surgery, Prostate cancer - Discharge Information Forms: ED Department Discharge Sepsis Event Note (ED) - Evaluation Sepsis Screening Result: No Definite Risk - Focused Exam Vital Signs: Vital Signs Temp Pulse Resp BP Pulse Ox 03/28/21 21:15 97.9 F 107 H 16 155/97 H 94 L - My Orders Last 24 Hours: My Active Orders 03/28/21 21:40 Sodium Chloride 0.9% [Normal Saline] 1,000 ml IV .BOLUS 03/28/21 21:52 NG [Nasogastric Orogastric Tube Insertion] [OM.PC] Routine 03/28/21 21:53 Gastrointestinal Tube Mgmt [RC] ASDIRECTED 03/28/21 22:00 CULTURE BLOOD [BC] Stat 03/29/21 02:35 Admission Diagnosis [ADT] Stat Patient Status [ADT] Routine - Assessment/Plan Last 24 Hours: My Active Orders 03/28/21 21:40 Sodium Chloride 0.9% [Normal Saline] 1,000 ml IV .BOLUS 03/28/21 21:52 NG [Nasogastric Orogastric Tube Insertion] [OM.PC] Routine 03/28/21 21:53 Gastrointestinal Tube Mgmt [RC] ASDIRECTED 03/28/21 22:00 CULTURE BLOOD [BC] Stat 03/29/21 02:35 Admission Diagnosis [ADT] Stat Patient Status [ADT] Routine
[2021-03-29] MEDS: Dextrose 5%-0.9% NaCl 1,000 ML IV SCH ×2 (03:15→11:24)
[2021-03-29] MEDS ORDERED: Morphine 2 MG/ML SYRINGE IVPUSH PRN (03:16)
[2021-03-29] MEDS: Magnesium Citrate Solution 296 ML Bottle NGTUBE SCH ×4 (12:06→18:07)
--- NOTE | 2021-03-29 12:40 | PCM.HP ---
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 prostate cancer with urinary bleeding and partial obstructive symptoms who dev. illeus //sbo while at u min.. after post op for aborted urostomy/bladder removal sec to extensive unrescable mets in pelvis and other places. had ng tube placed x 2 and stopped therapy and made it 2 days at home and reobstructed starting 2-3 days ago. denies fever chill rigors . he has distention and wretching and vomiti ng few times and mostly greenish stomach contents. voiding alright but abd pain severe until n/g placed last night around 9 p.m. 1200 cc brachish luid out and still feels bloated and distended but better. prostate dx 2017. /// local spread and mets but thinks stage 4 with distant mets in femur pelvic bone and rt radial fx. rt humeral pathologic fx. he has extensive radiation to mets and chemo and orchiectomy as well as partial turp. he has intermittent heavy blood clots form bladder/urethra form mets and radiation a nd clogs catheters as well as stricture problems ,primarily incontinent and wears [employer] cond. cath. has obstructive symptoms come and go and renal function decreased. full code and other medical problems reviewed. 03/29/21 assess:plan 1//sbo cont. ng drainage a nd start sm.amounts mg citrate and follow up . low intermittent suction has partially relieved distention but suspect high likelihood of recurrence. 2// bladder obstruction creat.1.7 and appears 3rd spacing and dry and i.v continued mant. for now. taking ice chips and no other signs relief obstruction yet. voiding continuously. 3// bone mets; not causing him severe pain but present and he is on narcotics prn which may increase illeus/ sbo. 4// hypertension sec to distention hold meds for now . 5//hydration slightly dry clinically cont i.v. boh Onset of Symptoms: Reports: Gradual Symptom Onset Date: 03/26/21 Duration of Symptoms: Reports: Day(s): (2-3) Location: Reports: Abdomen, Pelvis Quality: Reports: Pressure Improves with: Reports: None Worsens with: Reports: Medication, Other (decompression) Associated Symptoms: Reports: No Other Symptoms, Nausea/Vomiting Abdomen Pain Score (Numeric/FACES): 7 - Related Data Allergies/Adverse Reactions: Allergies Allergy/AdvReac Type Severity Reaction Status Date / Time amoxicillin Allergy Blisters Verified 02/08/21 12:01 Penicillins Allergy Blisters Verified 02/08/21 12:01 solifenacin Allergy Nausea Verified 02/08/21 12:01 tamsulosin [From Flomax] Allergy Cannot Verified 02/08/21 12:01 Remember Home Medications: Home Meds Simvastatin 20 mg PO BEDTIME 02/19/16 [History] Calcium Carbonate/Vitamin D3 [Calcium 600 + Vit D 200] 600 mg PO BID 06/08/18 [H istory] Acetaminophen 500 mg PO Q4H PRN 07/02/18 [History] Cholecalciferol (Vitamin D3) [Vitamin D3] 5,000 units PO BID 07/06/19 [History] Enzalutamide [Xtandi] 80 mg PO BEDTIME 07/06/19 [History] Sertraline [Zoloft] 75 mg PO DAILY 07/06/19 [History] Denosumab [Xgeva] 120 mg SUBCUT .MONTHLY 01/21/20 [History] Losartan [Cozaar] 25 mg PO DAILY 08/01/20 [History] Multivitamin 1 tab PO DAILY 09/30/20 [History] Acetaminophen/oxyCODONE [Percocet 325-5 MG] 1 each PO Q6H PRN 02/08/21 [History] Ondansetron [Zofran ODT] 4 mg PO Q6H PRN 02/08/21 [History] Cholecalciferol (Vitamin D3) [Vitamin D3] 800 unit PO .DAILYPM 03/29/21 [History] Docusate Sodium 100 mg PO BID 03/29/21 [History] Ferrous Gluconate 324 mg PO BID 03/29/21 [History] Sennosides [Senna] 8.6 mg PO .QOTHERDAY 03/29/21 [History] oxyCODONE 5 - 10 mg PO Q6H PRN 03/29/21 [History] polyethylene glycoL 3350 [MiraLAX] 17 gm PO DAILY PRN 03/29/21 [History] Past Medical History HEENT History: Reports: Cataract, Hard of Hearing, Impaired Vision Other HEENT History: glasses, bilateral hearing aids Cardiovascular History: Reports: High Cholesterol, Hypertension Other Cardiovascular History: left ventricular hypertrophy Respiratory History: Reports: None Gastrointestinal History: Reports: Diverticulosis, Hemorrhoids, Other (See Below) Other Gastrointestinal History: sigmoid colon stricture (radiation induced) Genitourinary History: Reports: Chronic Renal Insuffiency, Renal Calculus, Urinary Incontinence, Other (See Below) Other Genitourinary History: cyst on kidneys Musculoskeletal History: Reports: Fracture, Other (See Below) Other Musculoskeletal History: HX OF R WRIST FRACTURE. Osseous metastasis, right pubic ramus. Neurological History: Reports: None Psychiatric History: Reports: Anxiety, Depression Endocrine/Metabolic History: Reports: None Hematologic History: Reports: Anemia Immunologic History: Reports: Immunosuppression Oncologic (Cancer) History: Reports: Bone, Lymphoma, Metastatic, Prostate, Other (See Below) Other Oncologic History: prostate cancer Dermatologic History: Reports: Other (See Below) Other Dermatologic History: possible skin cancer, watching spots on right cheek - Infectious Disease History Infectious Disease History: Reports: Chicken Pox, Measles, Mumps - Past Surgical History Head Surgeries/Procedures: Reports: None HEENT Surgical History: Reports: None, Cataract Surgery Other HEENT Surgeries/Procedures: central serrous retanopothy, bilateral, et implants Cardiovascular Surgical History: Reports: None Respiratory Surgical History: Reports: None GI Surgical History: Reports: Colonoscopy, Other (See Below) Other GI Surgeries/Procedures: ventral hernia Male Surgical History: Reports: Ureteral Stent, Other (See Below) Other Male Surgeries/Procedures: orchiectomy. turp (vaporization). exploratory surgery recent Mar 2021 Neurological Surgical History: Reports: None Musculoskeletal Surgical History: Reports: None Oncologic Surgical History: Reports: None Social & Family History - Family History Family Medical History: No Pertinent Family History Oncologic: Reports: Prostate Other Oncologic Family History: two uncles, et cousins - Tobacco Use Tobacco Use Status *Q: Former Tobacco User Years of Tobacco use: 6 Packs/Tins Daily: 1 Used Tobacco, but Quit: Yes Month/Year Tobacco Last Used: 1999 Second Hand Smoke Exposure: No - Caffeine Use Caffeine Use: Reports: Soda Other Caffeine Use: Dt. dew /am - Recreational Drug Use Recreational Drug Use: No - Living Situation & Occupation Living situation: Reports: , with Spouse Occupation: Retired H&P Review of Systems - Review of Systems: Review Of Systems: See Below General: Reports: No Symptoms Gastrointestinal: Reports: Abdominal Pain, Distension, Nausea, Vomiting. Denies: Hematemesis, Hematochezia, Melena Exam - Exam Exam: See Below - Vital Signs Vital Signs: Last Vital Signs Temp 36.8 C 03/29/21 08:41 Pulse 86 03/29/21 08:41 Resp 20 03/29/21 08:41 BP 132/57 L 03/29/21 08:41 Pulse Ox 95 03/29/21 08:41 Weight: 93.894 kg - Exam General: Alert, Oriented, 4 HEENT: PERRLA, Hearing Intact, Mucosa Moist & [place], Nares Patent, Normal Nasal Septum, Posterior Pharynx Clear, Conjunctiva Clear, EOMI, EACs Clear, TMs Clear Neck: Supple, Trachea Midline, 2 Lungs: Clear to Auscultation, Normal Respiratory Effort Cardiovascular: Regular Rate, Regular Rhythm GI/Abdominal Exam: Normal Bowel Sounds, No Organomegaly, No Distention, No Abnormal Bruit, Pelvis Stable, Distended. No: Soft, Non-Tender (hard pelvic mass around syph pubis), No Mass (Male) Exam: No Hernia, Normal Inspection, Normal Prostate, Circumcised, Deferred (orchiectomy ). No: Hernia Rectal (Males) Exam: Normal Exam, Normal Rectal Tone, Prostate Normal Back Exam: Normal Inspection, Full Range of Motion, NT Extremities: Normal Inspection, Normal Range of Motion, Non-Tender, No Pedal E guera, Normal Capillary Refill Skin: Warm, Dry, Intact Neurological: Cranial Nerves Intact, Reflexes Equal Bilateral Neuro Extensive - Mental Status: Alert, Oriented x3, Normal Mood/Affect, Normal Cognition Neuro Extensive - Motor, Sensory, Reflexes: CN II-XII Intact, Normal Gait, Normal Reflexes Psychiatric: Alert, Normal Affect, Normal Mood - Patient Data Lab Results Last 24 hrs: Laboratory Results - last 24 hr 03/28/21 03/28/21 03/28/21 Range/Units 22:04 22:04 22:04 WBC 6.9 (5.0-10.0) 10^3/uL RBC 3.53 L (4.6-6.2) 10^6/uL Hgb 11.6 L (14.0-18.0) g/dL Hct 35.4 L (40.0-54.0) % MCV 100.3 H (80-100) fL MCH 32.9 (27.0-34.0) pg MCHC 32.8 L (33.0-35.0) g/dL Plt Count 305 (150-450) 10^3/uL Neut % (Auto) 90.3 H (42.2-75.2) % Lymph % (Auto) 2.5 L (20.5-50.1) % [place] % (Auto) 6.2 (2-8) % Eos % (Auto) 0.9 L (1.0-3.0) % Baso % (Auto) 0.1 (0.0-1.0) % Sodium 141 (136-145) mmol/L Potassium 4.0 (3.5-5.1) mmol/L Chloride 106 (98-107) mmol/L Carbon Dioxide 26 (21-32) mmol/L Anion Gap 13.0 (7-13) mEq/L BUN 22 H (7-18) mg/dL Creatinine 1.27 (0.70-1.30) mg/dL Est Cr Clr Drug Dosing 51.80 mL/min Estimated GFR (MDRD) 56 BUN/Creatinine Ratio 17.3 (No establ ref range) Glucose 158 H (70-99) mg/dL Lactic Acid 0.9 (0.4-2.0) mmol/L Calcium 9.4 (8.5-10.1) mg/dL Total Bilirubin 0.4 (0.2-1.0) mg/dL AST 52 H (15-37) U/L ALT 65 H (16-63) U/L Alkaline Phosphatase 61 (46-116) U/L Total Protein 6.9 (6.4-8.2) g/dL Albumin 3.2 L (3.4-5.0) g/dL Globulin 3.7 Albumin/Globulin Ratio 0.86 SARS-CoV-2 RNA (NIRALI) (NEGATIVE) 03/29/21 Range/Units 01:20 WBC (5.0-10.0) 10^3/uL RBC (4.6-6.2) 10^6/uL Hgb (14.0-18.0) g/dL Hct (40.0-54.0) % MCV (80-100) fL MCH (27.0-34.0) pg MCHC (33.0-35.0) g/dL Plt Count (150-450) 10^3/uL Neut % (Auto) (42.2-75.2) % Lymph % (Auto) (20.5-50.1) % [place] % (Auto) (2-8) % Eos % (Auto) (1.0-3.0) % Baso % (Auto) (0.0-1.0) % Sodium (136-145) mmol/L Potassium (3.5-5.1) mmol/L Chloride (98-107) mmol/L Carbon Dioxide (21-32) mmol/L Anion Gap (7-13) mEq/L BUN (7-18) mg/dL Creatinine (0.70-1.30) mg/dL Est Cr Clr Drug Dosing mL/min Estimated GFR (MDRD) BUN/Creatinine Ratio (No establ ref range) Glucose (70-99) mg/dL Lactic Acid (0.4-2.0) mmol/L Calcium (8.5-10.1) mg/dL Total Bilirubin (0.2-1.0) mg/dL AST (15-37) U/L ALT (16-63) U/L Alkaline Phosphatase (46-116) U/L Total Protein (6.4-8.2) g/dL Albumin (3.4-5.0) g/dL Globulin Albumin/Globulin Ratio SARS-CoV-2 RNA (NIRALI) Negative (NEGATIVE) Result Diagrams: 03/28/21 22:04 03/28/21 22:04 - Problem List (1) Gross hematuria SNOMED Code(s): 129439281 ICD Code: R31.0 - GROSS HEMATURIA Status: Acute Priority: Medium Current Visit: No Onset Date: ~03/29/21 Problem Details: urine clear for past 24 hours andno difficulty and cont. leaking.occasionally red tinged. (2) H/O abdominal surgery SNOMED Code(s): 114549990, 522488150 ICD Code: Z98.890 - OTHER SPECIFIED POSTPROCEDURAL STATES Status: Acute Priority: Medium Current Visit: No Onset Date: ~03/17/21 Problem Details: scar healing (3) Obstructive uropathy SNOMED Code(s): 2763068 ICD Code: N13.9 - OBSTRUCTIVE AND REFLUX UROPATHY, UNSPECIFIED Status: Acute Priority: Medium Current Visit: No Onset Date: ~03/23/21 Problem Details: voiding without current obstruction by hx. (4) Prostate cancer metastatic to bone SNOMED Code(s): 577780720 ICD Code: C61 - MALIGNANT NEOPLASM OF PROSTATE; C79.51 - SECONDARY MALIGNANT NEOPLASM OF BONE Status: Acute Priority: High Current Visit: Yes Onset Date: ~03/29/21 Problem Details: widely metastatic causing obstructive uropathy/ sbo / fx. (5) SBO (small bowel obstruction) SNOMED Code(s): 267429885 ICD Code: K56.609 - UNSP INTESTNL OBST, UNSP TO PARTIAL VERSUS COMPLETE OBST Status: Acute Priority: High Current Visit: Yes Onset Date: ~03/29/21 Problem Details: n/g placed and trying to get sbo to resolve/ barrium enama reusults to be reviewed with ct scan as well done in e.r.// likely high grade and not simple illues or sbo Problem List Initiated/Reviewed/Updated: Yes Orders Last 24hrs: Active Orders 24 hr Category Date Time Status Admission Diagnosis [ADT] Stat ADT 03/29/21 02:35 Ordered Patient Status [ADT] Routine ADT 03/29/21 02:35 Active Bedrest Bathroom Privileges [RC] ASDIRECTED Care 03/29/21 04:57 Active Gastrointestinal Tube Mgmt [RC] ASDIRECTED Care 03/28/21 21:53 Active Intake and Output [RC] 06,14,22 Care 03/29/21 05:01 Active NPO [Nothing Per Oral Diet] [DIET] Diet 03/29/21 Breakfast Active CULTURE BLOOD [BC] Stat Lab 03/28/21 22:00 Received Dextrose 5%-0.9% NaCl [Dextrose 5%-Normal Saline] 1,000 Med 03/29/21 03:30 Active ml IV ASDIRECTED Magnesium Citrate [Citrate of Magnesia] Med 03/29/21 12:00 Active 60 ml NGTUBE Q2H Morphine Med 03/29/21 03:16 Active 2 mg IVPUSH Q4H PRN NG [Nasogastric Orogastric Tube Insertion] [OM.PC] Oth 03/28/21 21:52 Ordered Routine Code Status [Resuscitation Status] Routine Resus Stat 03/29/21 04:58 Ordered Medication Orders Dextrose/Sodium Chloride (Dextrose 5%-Normal Saline) 1,000 mls @ 125 mls/hr IV ASDIRECTED ANA MARIA Last Admin: 03/29/21 11:24 Dose: 125 mls/hr Documented by: Infusion: 03/29/21 11:15 Dose: 125 mls/hr Documented by: Admin: 03/29/21 03:15 Dose: 125 mls/hr Documented by: ANALIA Magnesium Citrate (Magnesium Citrate Solution 296 Ml Bottle) 60 ml NGTUBE Q2H [facility] Stop: 03/29/21 18:01 Last Admin: 03/29/21 12:06 Dose: 60 ml Documented by: ROMEL Morphine Sulfate (Morphine 2 Mg/Ml Syringe) 2 mg IVPUSH Q4H PRN PRN Reason: Pain (moderate 4-6) Assessment/Plan Comment:: 03/29/21 assess:plan 1//sbo cont. ng drainage a nd start sm.amounts mg citrate and follow up . low intermittent suction has partially relieved distention but suspect high likelihood of recurrence. 2// bladder obstruction creat.1.7 and appears 3rd spacing and dry and i.v continued mant. for now. taking ice chips and no other signs relief obstruction yet. voiding continuously. 3// bone mets; not causing him severe pain but present and he is on narcotics prn which may increase illeus/ sbo. 4// hypertension sec to distention hold meds for now . 5//hydration slightly dry clinically cont i.v. boh
[2021-03-29] MEDS ORDERED: Acetaminophen 325 MG Tab PO PRN (12:58)
[2021-03-29] MEDS ORDERED: Dextrose 5%-0.45% NaCl 1,000 ML IV SCH ×3 (13:00→22:30)
[2021-03-29] MEDS ORDERED: Magnesium Hydroxide 400 MG/5 ML Susp 30 ML Cup PO PRN (13:03)
[2021-03-29] MEDS ORDERED: Pantoprazole 40 MG Vial IVPUSH ONE (13:15)
[2021-03-29] MEDS ORDERED: DENOSUMAB 120 MG/1.7 ML SUBCUT SCH (13:15)
--- NOTE | 2021-03-29 17:07 | PCM.SN.2 ---
- Free Text/Narrative Note: 03/29/21 still distended and 750 out over last 6 hours.// abd very distended. discussed options and would suspect if not repsondig to n/g then consider surgical consultation and they agree if no response over next 24 hours. cont mag citrate and repeat laba nd xray in am . advised against reglan in face of possibel complete bowel obstruction. boh
[2021-03-29] MEDS ORDERED: Furosemide 20 MG/2 ML VIAL IVPUSH ONE (22:24)
[2021-03-30 06:47] LABS: ANION GAP 11.1 mEq/L (7-13); CHLORIDE,CL 108 mmol/L (98-107); SODIUM,NA 145 mmol/L (136-145)
[2021-03-30] MEDS ORDERED: Enoxaparin 40 MG/0.4 ML Syringe SUBCUT SCH (09:00)
--- NOTE | 2021-03-30 09:45 | CR ---
PROCEDURE INFORMATION: Exam: XR Abdomen Exam date and time: 03/30/2021 7:57 AM Age: 75 years old Clinical indication: Abdominal pain; Additional info: Sbo TECHNIQUE: Imaging protocol: XR of the abdomen. Views: Frontal supine view of the abdomen. 1 View. (2 images total) COMPARISON: CT Abdomen Pelvis w Cont 03/28/2021 11:31 PM FINDINGS: Tubes, catheters and devices: A section of the nasogastric tube is visualized in the stomach, but its tip is not included. Gastrointestinal tract: There is moderate gaseous distention of multiple stacked small bowel loops, consistent with obstruction seen on the CT. Bones/joints: Degenerative changes again involve the spine. IMPRESSION: Moderate gaseous distention of multiple stacked small bowel loops, consistent with obstruction seen on CT of 03/28/2021.
--- NOTE | 2021-03-30 13:55 | PCM.PN ---
- General Info Date of Service: 03/30/21 Admission Dx/Problem (Free Text): Admission Diagnosis/Problem Admission Diagnosis/Problem Small bowel obstruction/metastatic prostate cancer Subjective Update: No significant overnight acute issues. No fever or chills. He remains with high gastric output. He remains considerably distended. He is passing some gas. He has not had any bowel movements. Last bowel movement was on Monday. He is not nauseous and no emesis. His abdomen remains firm. Last night he had about 500 ml of gastric output. His WBC this morning is 3.2 and with a hemoglobin of 9.9 g. His potassium slightly low at 3.1 with a calcium level of 8.2. He has no acute issues or concerns at this time. Functional Status: Reports: Pain Controlled, Ambulating, Urinating. Denies: Tolerating Diet, New Symptoms - Review of Systems General: Denies: Fever, Chills HEENT: Reports: No Symptoms Pulmonary: Reports: Shortness of Breath Cardiovascular: Denies: Chest Pain, Orthopnea Gastrointestinal: Reports: Flatus, Other. Denies: Abdominal Pain, Nausea, Vomiting (distended) Genitourinary: Denies: Urgency, Incontinence Musculoskeletal: Denies: Neck Pain, Shoulder Pain, Arm Pain, Hand Pain Skin: Denies: Cyanosis, Jaundice, Mottled, Pallor, Diaphoresis Neurological: Denies: Confusion Psychiatric: Denies: Confusion, Depression, Anxiety, Agitation - Patient Data Vitals - Most Recent: Last Vital Signs Temp 36.7 C 03/30/21 12:00 Pulse 78 03/30/21 12:00 Resp 20 03/30/21 12:00 BP 148/75 H 03/30/21 12:00 Pulse Ox 96 03/30/21 12:00 Weight - Most Recent: 93.894 kg I&O - Last 24 Hours: Intake & Output 03/29/21 03/30/21 03/30/21 22:59 06:59 14:59 Output Total 100 250 50 Balance -100 -250 -50 Lab Results Last 24 Hours: Laboratory Results - last 24 hr 03/30/21 03/30/21 03/30/21 Range/Units 06:10 06:10 06:10 WBC 3.2 L (5.0-10.0) 10^3/uL RBC 3.00 L (4.6-6.2) 10^6/uL Hgb 9.9 L D (14.0-18.0) g/dL Hct 30.6 L (40.0-54.0) % MCV 102.0 H (80-100) fL MCH 33.0 (27.0-34.0) pg MCHC 32.4 L (33.0-35.0) g/dL Plt Count 266 (150-450) 10^3/uL APTT 28.5 (22.0-34.0) SEC Sodium 145 (136-145) mmol/L Potassium 3.1 L (3.5-5.1) mmol/L Chloride 108 H (98-107) mmol/L Carbon Dioxide 29 (21-32) mmol/L Anion Gap 11.1 (7-13) mEq/L BUN 21 H (7-18) mg/dL Creatinine 1.16 (0.70-1.30) mg/dL Est Cr Clr Drug Dosing 56.72 mL/min Estimated GFR (MDRD) > 60 BUN/Creatinine Ratio 18.1 (No establ ref range) Glucose 105 H (70-99) mg/dL Calcium 8.2 L (8.5-10.1) mg/dL Magnesium 1.8 (1.8-2.4) mg/dL Total Bilirubin 0.3 (0.2-1.0) mg/dL AST 19 (15-37) U/L ALT 43 (16-63) U/L Alkaline Phosphatase 54 (46-116) U/L Total Protein 5.6 L (6.4-8.2) g/dL Albumin 2.5 L (3.4-5.0) g/dL Globulin 3.1 Albumin/Globulin Ratio 0.81 Urine Color (YELLOW) Urine Appearance (CLEAR) Urine pH (5.0-9.0) Ur Specific [place] (1.005-1.030) Urine Protein (NEGATIVE) Urine Glucose (UA) (NEGATIVE) Urine Ketones (NEGATIVE) Urine Occult Blood (NEGATIVE) Urine Nitrite (NEGATIVE) Urine Bilirubin (NEGATIVE) Urine Urobilinogen (0.2-1.0) mg/dL Ur Leukocyte Esterase (NEGATIVE) Urine RBC (0-5) /HPF Urine WBC (0-5/HPF) /HPF Ur Epithelial Cells (NOT SEEN) /HPF Amorphous Sediment (NOT SEEN) /HPF Urine Bacteria (0-FEW/HPF) /HPF Urine Mucus (NOT SEEN) /LPF 03/30/21 Range/Units 10:00 WBC (5.0-10.0) 10^3/uL RBC (4.6-6.2) 10^6/uL Hgb (14.0-18.0) g/dL Hct (40.0-54.0) % MCV (80-100) fL MCH (27.0-34.0) pg MCHC (33.0-35.0) g/dL Plt Count (150-450) 10^3/uL APTT (22.0-34.0) SEC Sodium (136-145) mmol/L Potassium (3.5-5.1) mmol/L Chloride (98-107) mmol/L Carbon Dioxide (21-32) mmol/L Anion Gap (7-13) mEq/L BUN (7-18) mg/dL Creatinine (0.70-1.30) mg/dL Est Cr Clr Drug Dosing mL/min Estimated GFR (MDRD) BUN/Creatinine Ratio (No establ ref range) Glucose (70-99) mg/dL Calcium (8.5-10.1) mg/dL Magnesium (1.8-2.4) mg/dL Total Bilirubin (0.2-1.0) mg/dL AST (15-37) U/L ALT (16-63) U/L Alkaline Phosphatase (46-116) U/L Total Protein (6.4-8.2) g/dL Albumin (3.4-5.0) g/dL Globulin Albumin/Globulin Ratio Urine Color Yellow (YELLOW) Urine Appearance Clear (CLEAR) Urine pH 6.0 (5.0-9.0) Ur Specific [place] >= 1.030 (1.005-1.030) Urine Protein >=300 H (NEGATIVE) Urine Glucose (UA) Negative (NEGATIVE) Urine Ketones Negative (NEGATIVE) Urine Occult Blood Moderate H (NEGATIVE) Urine Nitrite Negative (NEGATIVE) Urine Bilirubin Negative (NEGATIVE) Urine Urobilinogen 0.2 (0.2-1.0) mg/dL Ur Leukocyte Esterase Negative (NEGATIVE) Urine RBC 5-10 H (0-5) /HPF Urine WBC 0-5 (0-5/HPF) /HPF Ur Epithelial Cells Few (NOT SEEN) /HPF Amorphous Sediment Few (NOT SEEN) /HPF Urine Bacteria Moderate H (0-FEW/HPF) /HPF Urine Mucus Moderate H (NOT SEEN) /LPF [facility] Results Last 24 Hours: Microbiology 03/28/21 22:00 Aerobic Blood Culture - Preliminary Blood - Venous - Iv Start NO GROWTH AFTER 1 DAY Anaerobic Blood Culture - Preliminary NO GROWTH AFTER 1 DAY Med Orders - Current: Current Medications Acetaminophen (Acetaminophen 325 Mg Tab) 650 mg PO Q4H PRN PRN Reason: Pain (Mild 1-3)/fever Enoxaparin Sodium (Enoxaparin 40 Mg/0.4 Ml Syringe) 40 mg SUBCUT DAILY [facility] Last Admin: 03/30/21 09:48 Dose: 40 mg Documented by: Dextrose/Sodium Chloride (Dextrose 5%-1/2 Ns) 1,000 mls @ 25 mls/hr IV ASDIRECTED [facility] Last Admin: 03/29/21 22:47 Dose: 25 mls/hr Documented by: Magnesium Hydroxide (Magnesium Hydroxide 400 Mg/5 Ml Susp 30 Ml Cup) 30 ml PO Q12H PRN PRN Reason: Constipation Morphine Sulfate (Morphine 2 Mg/Ml Syringe) 2 mg IVPUSH Q4H PRN PRN Reason: Pain (moderate 4-6) Last Admin: 03/29/21 20:16 Dose: 2 mg Documented by: Discontinued Medications Furosemide (Furosemide 20 Mg/2 Ml Vial) 20 mg IVPUSH ONETIME ONE Stop: 03/29/21 22:25 Last Admin: 03/29/21 22:46 Dose: 20 mg Documented by: Hydromorphone HCl (Hydromorphone 1 Mg/Ml Syringe) 1 mg IVPUSH ONETIME ONE Stop: 03/28/21 21:41 Last Admin: 03/28/21 22:07 Dose: 1 mg Documented by: Sodium Chloride (Normal Saline) 1,000 mls @ 150 mls/hr IV .BOLUS ONE Stop: 03/29/21 04:19 Last Admin: 03/28/21 22:07 Dose: 150 mls/hr Documented by: Dextrose/Sodium Chloride (Dextrose 5%-Normal Saline) 1,000 mls @ 125 mls/hr IV ASDIRECTED [facility] Last Admin: 03/29/21 11:24 Dose: 125 mls/hr Documented by: Dextrose/Sodium Chloride (Dextrose 5%-1/2 Ns) 1,000 mls @ 125 mls/hr IV ASDIRECTED ANA MARIA Last Admin: 03/29/21 19:09 Dose: 125 mls/hr Documented by: Dextrose/Sodium Chloride (Dextrose 5%-1/2 Ns) 1,000 mls @ 65 mls/hr IV ASDIRECTED ANA [facility]IA Iopamidol (Iopamidol 612 Mg/Ml 100 Ml Bottle) 100 ml IVPUSH ONETIME ONE Stop: 03/28/21 22:51 Last Admin: 03/28/21 23:17 Dose: 100 ml Documented by: Magnesium Citrate (Magnesium Citrate Solution 296 Ml Bottle) 60 ml NGTUBE Q2H ANA MARIA Stop: 03/29/21 18:01 Last Admin: 03/29/21 18:07 Dose: 60 ml Documented by: Ondansetron HCl (Ondansetron 4 Mg/2 Ml Sdv) 4 mg IVPUSH ONETIME ONE Stop: 03/28/21 21:41 Last Admin: 03/28/21 22:06 Dose: 4 mg Documented by: Pantoprazole Sodium (Pantoprazole 40 Mg Vial) 40 mg IVPUSH ONETIME ONE Stop: 03/29/21 13:16 Last Admin: 03/29/21 13:49 Dose: 40 mg Documented by: - Exam Quality Assessment: No: Supplemental Oxygen General: Alert, Oriented, Cooperative, No Acute Distress HEENT: Pupils Equal, Pupils Reactive, EOMI, Mucous Membr. Moist/[place] Neck: Supple Lungs: Clear to Auscultation, Normal Respiratory Effort Cardiovascular: Regular Rate, Regular Rhythm GI/Abdominal Exam: Soft, Non-Tender, No Abnormal Bruit, Distended. No: Normal Bowel Sounds, No Organomegaly (Male) Exam: Deferred Back Exam: Normal Inspection, Full Range of Motion Extremities: Normal Inspection, Normal Range of Motion, Non-Tender, Normal Capillary Refill, Pedal Edema (Trace on right lower extremity) Peripheral Pulses: 2+: Dorsalis Pedis (L), Dorsalis Pedis (R) Skin: Warm, Intact Neurological: No New Focal Deficit Psy/Mental Status: Alert, Normal Affect, Normal Mood - Patient Data Lab Results Last 24 hrs: Laboratory Results - last 24 hr 03/30/21 03/30/21 03/30/21 Range/Units 06:10 06:10 06:10 WBC 3.2 L (5.0-10.0) 10^3/uL RBC 3.00 L (4.6-6.2) 10^6/uL Hgb 9.9 L D (14.0-18.0) g/dL Hct 30.6 L (40.0-54.0) % MCV 102.0 H (80-100) fL MCH 33.0 (27.0-34.0) pg MCHC 32.4 L (33.0-35.0) g/dL Plt Count 266 (150-450) 10^3/uL APTT 28.5 (22.0-34.0) SEC Sodium 145 (136-145) mmol/L Potassium 3.1 L (3.5-5.1) mmol/L Chloride 108 H (98-107) mmol/L Carbon Dioxide 29 (21-32) mmol/L Anion Gap 11.1 (7-13) mEq/L BUN 21 H (7-18) mg/dL Creatinine 1.16 (0.70-1.30) mg/dL Est Cr Clr Drug Dosing 56.72 mL/min Estimated GFR (MDRD) > 60 BUN/Creatinine Ratio 18.1 (No establ ref range) Glucose 105 H (70-99) mg/dL Calcium 8.2 L (8.5-10.1) mg/dL Magnesium 1.8 (1.8-2.4) mg/dL Total Bilirubin 0.3 (0.2-1.0) mg/dL AST 19 (15-37) U/L ALT 43 (16-63) U/L Alkaline Phosphatase 54 (46-116) U/L Total Protein 5.6 L (6.4-8.2) g/dL Albumin 2.5 L (3.4-5.0) g/dL Globulin 3.1 Albumin/Globulin Ratio 0.81 Urine Color (YELLOW) Urine Appearance (CLEAR) Urine pH (5.0-9.0) Ur Specific [place] (1.005-1.030) Urine Protein (NEGATIVE) Urine Glucose (UA) (NEGATIVE) Urine Ketones (NEGATIVE) Urine Occult Blood (NEGATIVE) Urine Nitrite (NEGATIVE) Urine Bilirubin (NEGATIVE) Urine Urobilinogen (0.2-1.0) mg/dL Ur Leukocyte Esterase (NEGATIVE) Urine RBC (0-5) /HPF Urine WBC (0-5/HPF) /HPF Ur Epithelial Cells (NOT SEEN) /HPF Amorphous Sediment (NOT SEEN) /HPF Urine Bacteria (0-FEW/HPF) /HPF Urine Mucus (NOT SEEN) /LPF 03/30/21 Range/Units 10:00 WBC (5.0-10.0) 10^3/uL RBC (4.6-6.2) 10^6/uL Hgb (14.0-18.0) g/dL Hct (40.0-54.0) % MCV (80-100) fL MCH (27.0-34.0) pg MCHC (33.0-35.0) g/dL Plt Count (150-450) 10^3/uL APTT (22.0-34.0) SEC Sodium (136-145) mmol/L Potassium (3.5-5.1) mmol/L Chloride (98-107) mmol/L Carbon Dioxide (21-32) mmol/L Anion Gap (7-13) mEq/L BUN (7-18) mg/dL Creatinine (0.70-1.30) mg/dL Est Cr Clr Drug Dosing mL/min Estimated GFR (MDRD) BUN/Creatinine Ratio (No establ ref range) Glucose (70-99) mg/dL Calcium (8.5-10.1) mg/dL Magnesium (1.8-2.4) mg/dL Total Bilirubin (0.2-1.0) mg/dL AST (15-37) U/L ALT (16-63) U/L Alkaline Phosphatase (46-116) U/L Total Protein (6.4-8.2) g/dL Albumin (3.4-5.0) g/dL Globulin Albumin/Globulin Ratio Urine Color Yellow (YELLOW) Urine Appearance Clear (CLEAR) Urine pH 6.0 (5.0-9.0) Ur Specific [place] >= 1.030 (1.005-1.030) Urine Protein >=300 H (NEGATIVE) Urine Glucose (UA) Negative (NEGATIVE) Urine Ketones Negative (NEGATIVE) Urine Occult Blood Moderate H (NEGATIVE) Urine Nitrite Negative (NEGATIVE) Urine Bilirubin Negative (NEGATIVE) Urine Urobilinogen 0.2 (0.2-1.0) mg/dL Ur Leukocyte Esterase Negative (NEGATIVE) Urine RBC 5-10 H (0-5) /HPF Urine WBC 0-5 (0-5/HPF) /HPF Ur Epithelial Cells Few (NOT SEEN) /HPF Amorphous Sediment Few (NOT SEEN) /HPF Urine Bacteria Moderate H (0-FEW/HPF) /HPF Urine Mucus Moderate H (NOT SEEN) /LPF Result Diagrams: 03/30/21 06:10 03/30/21 06:10 Frandy Results Last 24 hrs: Microbiology 03/28/21 22:00 Aerobic Blood Culture - Preliminary Blood - Venous - Iv Start NO GROWTH AFTER 1 DAY Anaerobic Blood Culture - Preliminary NO GROWTH AFTER 1 DAY Sepsis Event Note - Evaluation Sepsis Screening Result: No Definite Risk - Focused Exam Vital Signs: Vital Signs Temp Pulse Resp BP Pulse Ox 03/30/21 12:00 36.7 C 78 20 148/75 H 96 03/30/21 08:55 36.9 C 84 20 150/77 H 94 L 03/30/21 04:00 36.3 C 74 16 157/78 H 94 L - Problem List Review Problem List Initiated/Reviewed/Updated: Yes - Assessment Assessment:: This is a 72-year-old white male with past medical history of metastatic prostate cancer status post external beam radiation complicated by urethral str icture disease status post laser bladder neck incision, bilateral orchiectomy for surgical castration, with 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,, renal insufficiency, hypertension, hyperlipidemia, diverticulosis, chronic anemia, left-ventricular hypertrophy, depression, history of hemorrhagic cystitis and recent failed attempt of cystectomy and urinary diversion for palliative measure who developed ileus while he was hospitalized 10 days ago in [place] now comes back with worsening GI symptoms and was admitted for small bowel obstruction. Assessment: Acute: Moderate small bowel obstruction with probable transition point in the right lower quadrant noted abdominal/pelvis CT scan taken yesterday Small right pleural effusion noted on abdominal CT scan Thrombocytopenia with WBC of 3.2 Macrocytic hypochromic anemia with hemoglobin of 9.9, carries history of anemia of chronic disease Mild hypokalemia with potassium of 3.1 Mild hypochloremia with chloride of 108 Hyperglycemia with glucose of 105 Chronic: Metastatic prostate cancer status post external beam radiation complicated by urethral stricture disease status post laser bladder neck incision, bilateral orchiectomy for surgical castration, with 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,, renal insufficiency, hypertension, hyperlipidemia, diverticulosis, chronic anemia, left-ventricular hypertrophy, depression, history of hemorrhagic cystitis and recent failed attempt of cystectomy and urinary diversion for palliative measure - Plan Plan:: Plan: Patient remains with high gastric output Routine AM Labs Monitor for electrolyte abnormality Electrolytes replacement protocol Concerns patient is not getting better, he may need up level of care We have no surgical or oncologic services here at [facility] IV fluids for hydration Continue NG tube with low intermittent suction DVT/GI prophylaxis CODE STATUS is full
--- NOTE | 2021-03-30 14:26 | PCM.SN.2 ---
- Free Text/Narrative Note: 1409: Called and discussed case with Dr. Андрей Westbrook patient's oncologist in [place]. Informed him that patient has persistent small bowel obstruction. CT was read as moderate bowel obstruction with probable transition point in the right lower quadrant. He has had high gastric output and did not benefit with N GT for therapeutic decompression. Made him aware we have no general surgeon at this hospital. He recommended patient be transferred either to [facility]. 1423: Discussed our options with family and his . He would like to be transferred to [place] so he can see his oncologist. However if no beds available, we will proceed with [facility] so he will be closer to his urologist, Dr. Vu. Called [facility] for transfer. They were willing to take him but he will be #5 on the waiting list. 1427: Called [facility] and they will call us back in a few hours for possible transfer. We were not told about him being on the waiting list. 1451: Received a call back from [facility] and discussed case with Dr. Cordon who agreed to accept this patient under his services. We will go ahead and inform the patient and his about the transfer plan. Time spent: Greater than 45 minutes Time Documentation
--- NOTE | 2021-03-30 16:10 | PCM.DCSUM1 ---
Discharge Summary - Hospital Course Brief History: This is a 72-year-old white male with past medical history of metastatic prostate cancer status post external beam radiation complicated by urethral stricture disease status post laser bladder neck incision, bilateral orchiectomy for surgical castration, with 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,, renal insufficiency, hypertension, hyperlipidemia, diverticulosis, chronic anemia, left-ventricular hypertrophy, depression, history of hemorrhagic cystitis and recent failed attempt of cystectomy and urinary diversion for palliative measure who developed ileus while he was hospitalized 10 days ago in [place] now comes back with worsening GI symptoms and was admitted for small bowel obstruction. Diagnosis: Stroke: No Modified Luna Scale: No Symptoms at All Modified Luna Scale Score: 0 - Discharge Data Discharge Date: 03/30/21 Discharge Disposition: DC/Tfer to Acute Hospital 02 Condition: Stable - Referral to Home Health Primary Care Physician: PCP None - Patient Summary/Data Operative Procedure(s) Performed: None Complications: none Consults: Consultations 03/29/21 13:03 Consult to Case Management/Case Manager [CONS] Routine Labs Pending at D/C: None Recommended Follow-up Testing/Procedures: None Planned Operative Procedure(s) after DC: None Hospital Course: Patient was apparently admitted for persistent abdominal distention associated with nausea with vomiting and was diagnosed with moderate small bowel obstruction. He has had ileus during his recent hospitalization in [place]. Unfortunately he went home with lingering GI symptoms. A couple of days after he made it back home, he had recurrent abdominal distention with nausea and vomiting. Patient was admitted yesterday with conservative management. Unfortunately he was unresponsive to medical management and continued to have high gastric output with no. General surgery services at his local hospital, we elected to keep him out for upper level of care. Discussed case with Dr. Cordon, hospitalist attending at [facility], who agreed to accept this patient for further evaluation and management. At the time of transfer, the patient was deemed stable. - Patient Instructions Diet: NPO Activity: As Tolerated Driving: Do Not Drive Showering/Bathing: May Shower Notify Provider of: Fever, Increased Pain, Swelling and Redness, Nausea and/or Vomiting - Discharge Plan *PRESCRIPTION DRUG MONITORING PROGRAM REVIEWED*: Not Applicable *COPY OF PRESCRIPTION DRUG MONITORING REPORT IN PATIENT JALIL: Not Applicable Home Medications: Home Meds Simvastatin 20 mg PO BEDTIME 02/19/16 [History] Calcium Carbonate/Vitamin D3 [Calcium 600 + Vit D 200] 600 mg PO BID 06/08/18 [History] Acetaminophen 500 mg PO Q4H PRN 07/02/18 [History] Cholecalciferol (Vitamin D3) [Vitamin D3] 5,000 units PO BID 07/06/19 [History] Enzalutamide [Xtandi] 80 mg PO BEDTIME 07/06/19 [History] Sertraline [Zoloft] 75 mg PO DAILY 07/06/19 [History] Denosumab [Xgeva] 120 mg SUBCUT .MONTHLY 01/21/20 [History] Losartan [Cozaar] 25 mg PO DAILY 08/01/20 [History] Multivitamin 1 tab PO DAILY 09/30/20 [History] Acetaminophen/oxyCODONE [Percocet 325-5 MG] 1 each PO Q6H PRN 02/08/21 [History] Ondansetron [Zofran ODT] 4 mg PO Q6H PRN 02/08/21 [History] Cholecalciferol (Vitamin D3) [Vitamin D3] 800 unit PO .DAILYPM 03/29/21 [History] Docusate Sodium 100 mg PO BID 03/29/21 [History] Ferrous Gluconate 324 mg PO BID 03/29/21 [History] Sennosides [Senna] 8.6 mg PO .QOTHERDAY 03/29/21 [History] oxyCODONE 5 - 10 mg PO Q6H PRN 03/29/21 [History] polyethylene glycoL 3350 [MiraLAX] 17 gm PO DAILY PRN 03/29/21 [History] Oxygen Therapy Mode: Room Air - Discharge Summary/Plan Comment DC Time >30 min.: Yes Total # of Minutes for Discharge Time: 35 mins Discharge Summary/Plan Comment: Transfer to upper level of [place], [place] - General Info Date of Service: 03/30/21 Admission Dx/Problem (Free Text: Admission Diagnosis/Problem Admission Diagnosis/Problem Small bowel obstruction/metastatic prostate cancer Subjective Update: No significant overnight acute issues. No fever or chills. He remains with high gastric output. He remains considerably distended. He is passing some gas. He has not had any bowel movements. Last bowel movement was on Monday. He is not nauseous and no emesis. His abdomen remains firm. Last night he had about 500 mL of gastric output. His WBC this morning is 3.2 and a hemoglobin of 9.9 g. His potassium is slightly low at 3.1 with a calcium level of 8.2. He has no acute issues or concerns at this time. Functional Status: Reports: Pain Controlled, Ambulating, Urinating. Denies: Tolerating Diet, New Symptoms - Review of Systems General: Denies: Fever, Weakness, Fatigue, Malaise HEENT: Reports: No Symptoms Pulmonary: Denies: Shortness of Breath Gastrointestinal: Denies: Abdominal Pain, Nausea, Vomiting Genitourinary: Denies: Dysuria, Urgency Musculoskeletal: Reports: No Symptoms Skin: Reports: No Symptoms Neurological: Denies: Confusion Psychiatric: Denies: Confusion, Agitation - Patient Data Vitals - Most Recent: Last Vital Signs Temp 36.7 C 03/30/21 12:00 Pulse 78 03/30/21 12:00 Resp 20 03/30/21 12:00 BP 148/75 H 03/30/21 12:00 Pulse Ox 96 03/30/21 12:00 Weight - Most Recent: 93.894 kg I&O - Last 24 hours: Intake & Output 03/30/21 03/30/21 03/30/21 06:59 14:59 22:59 Output Total 250 50 Balance -250 -50 Lab Results - Last 24 hrs: Laboratory Results - last 24 hr 03/30/21 03/30/21 03/30/21 Range/Units 06:10 06:10 06:10 WBC 3.2 L (5.0-10.0) 10^3/uL RBC 3.00 L (4.6-6.2) 10^6/uL Hgb 9.9 L D (14.0-18.0) g/dL Hct 30.6 L (40.0-54.0) % MCV 102.0 H (80-100) fL MCH 33.0 (27.0-34.0) pg MCHC 32.4 L (33.0-35.0) g/dL Plt Count 266 (150-450) 10^3/uL APTT 28.5 (22.0-34.0) SEC Sodium 145 (136-145) mmol/L Potassium 3.1 L (3.5-5.1) mmol/L Chloride 108 H (98-107) mmol/L Carbon Dioxide 29 (21-32) mmol/L Anion Gap 11.1 (7-13) mEq/L BUN 21 H (7-18) mg/dL Creatinine 1.16 (0.70-1.30) mg/dL Est Cr Clr Drug Dosing 56.72 mL/min Estimated GFR (MDRD) > 60 BUN/Creatinine Ratio 18.1 (No establ ref range) Glucose 105 H (70-99) mg/dL Calcium 8.2 L (8.5-10.1) mg/dL Magnesium 1.8 (1.8-2.4) mg/dL Total Bilirubin 0.3 (0.2-1.0) mg/dL AST 19 (15-37) U/L ALT 43 (16-63) U/L Alkaline Phosphatase 54 (46-116) U/L Total Protein 5.6 L (6.4-8.2) g/dL Albumin 2.5 L (3.4-5.0) g/dL Globulin 3.1 Albumin/Globulin Ratio 0.81 Urine Color (YELLOW) Urine Appearance (CLEAR) Urine pH (5.0-9.0) Ur Specific Lynch (1.005-1.030) Urine Protein (NEGATIVE) Urine Glucose (UA) (NEGATIVE) Urine Ketones (NEGATIVE) Urine Occult Blood (NEGATIVE) Urine Nitrite (NEGATIVE) Urine Bilirubin (NEGATIVE) Urine Urobilinogen (0.2-1.0) mg/dL Ur Leukocyte Esterase (NEGATIVE) Urine RBC (0-5) /HPF Urine WBC (0-5/HPF) /HPF Ur Epithelial Cells (NOT SEEN) /HPF Amorphous Sediment (NOT SEEN) /HPF Urine Bacteria (0-FEW/HPF) /HPF Urine Mucus (NOT SEEN) /LPF 03/30/21 Range/Units 10:00 WBC (5.0-10.0) 10^3/uL RBC (4.6-6.2) 10^6/uL Hgb (14.0-18.0) g/dL Hct (40.0-54.0) % MCV (80-100) fL MCH (27.0-34.0) pg MCHC (33.0-35.0) g/dL Plt Count (150-450) 10^3/uL APTT (22.0-34.0) SEC Sodium (136-145) mmol/L Potassium (3.5-5.1) mmol/L Chloride (98-107) mmol/L Carbon Dioxide (21-32) mmol/L Anion Gap (7-13) mEq/L BUN (7-18) mg/dL Creatinine (0.70-1.30) mg/dL Est Cr Clr Drug Dosing mL/min Estimated GFR (MDRD) BUN/Creatinine Ratio (No establ ref range) Glucose (70-99) mg/dL Calcium (8.5-10.1) mg/dL Magnesium (1.8-2.4) mg/dL Total Bilirubin (0.2-1.0) mg/dL AST (15-37) U/L ALT (16-63) U/L Alkaline Phosphatase (46-116) U/L Total Protein (6.4-8.2) g/dL Albumin (3.4-5.0) g/dL Globulin Albumin/Globulin Ratio Urine Color Yellow (YELLOW) Urine Appearance Clear (CLEAR) Urine pH 6.0 (5.0-9.0) Ur Specific Lynch >= 1.030 (1.005-1.030) Urine Protein >=300 H (NEGATIVE) Urine Glucose (UA) Negative (NEGATIVE) Urine Ketones Negative (NEGATIVE) Urine Occult Blood Moderate H (NEGATIVE) Urine Nitrite Negative (NEGATIVE) Urine Bilirubin Negative (NEGATIVE) Urine Urobilinogen 0.2 (0.2-1.0) mg/dL Ur Leukocyte Esterase Negative (NEGATIVE) Urine RBC 5-10 H (0-5) /HPF Urine WBC 0-5 (0-5/HPF) /HPF Ur Epithelial Cells Few (NOT SEEN) /HPF Amorphous Sediment Few (NOT SEEN) /HPF Urine Bacteria Moderate H (0-FEW/HPF) /HPF Urine Mucus Moderate H (NOT SEEN) /LPF KILEY Results - Last 24 hrs: Microbiology 03/28/21 22:00 Aerobic Blood Culture - Preliminary Blood - Venous - Iv Start NO GROWTH AFTER 1 DAY Anaerobic Blood Culture - Preliminary NO GROWTH AFTER 1 DAY Med Orders - Current: Current Medications Acetaminophen (Acetaminophen 325 Mg Tab) 650 mg PO Q4H PRN PRN Reason: Pain (Mild 1-3)/fever Enoxaparin Sodium (Enoxaparin 40 Mg/0.4 Ml Syringe) 40 mg SUBCUT DAILY ANA MARIA Last Admin: 03/30/21 09:48 Dose: 40 mg Documented by: Dextrose/Sodium Chloride (Dextrose 5%-1/2 Ns) 1,000 mls @ 25 mls/hr IV ASDIRECTED [facility] Last Admin: 03/29/21 22:47 Dose: 25 mls/hr Documented by: Magnesium Hydroxide (Magnesium Hydroxide 400 Mg/5 Ml Susp 30 Ml Cup) 30 ml PO Q12H PRN PRN Reason: Constipation Morphine Sulfate (Morphine 2 Mg/Ml Syringe) 2 mg IVPUSH Q4H PRN PRN Reason: Pain (moderate 4-6) Last Admin: 03/29/21 20:16 Dose: 2 mg Documented by: Discontinued Medications Furosemide (Furosemide 20 Mg/2 Ml Vial) 20 mg IVPUSH ONETIME ONE Stop: 03/29/21 22:25 Last Admin: 03/29/21 22:46 Dose: 20 mg Documented by: Hydromorphone HCl (Hydromorphone 1 Mg/Ml Syringe) 1 mg IVPUSH ONETIME ONE Stop: 03/28/21 21:41 Last Admin: 03/28/21 22:07 Dose: 1 mg Documented by: Sodium Chloride (Normal Saline) 1,000 mls @ 150 mls/hr IV .BOLUS ONE Stop: 03/29/21 04:19 Last Admin: 03/28/21 22:07 Dose: 150 mls/hr Documented by: Dextrose/Sodium Chloride (Dextrose 5%-Normal Saline) 1,000 mls @ 125 mls/hr IV ASDIRECTED [facility] Last Admin: 03/29/21 11:24 Dose: 125 mls/hr Documented by: Dextrose/Sodium Chloride (Dextrose 5%-1/2 Ns) 1,000 mls @ 125 mls/hr IV ASDIRECTED ANA MARIA Last Admin: 03/29/21 19:09 Dose: 125 mls/hr Documented by: Dextrose/Sodium Chloride (Dextrose 5%-1/2 Ns) 1,000 mls @ 65 mls/hr IV ASDIRECTED [facility] Iopamidol (Iopamidol 612 Mg/Ml 100 Ml Bottle) 100 ml IVPUSH ONETIME ONE Stop: 03/28/21 22:51 Last Admin: 03/28/21 23:17 Dose: 100 ml Documented by: Magnesium Citrate (Magnesium Citrate Solution 296 Ml Bottle) 60 ml NGTUBE Q2H ANA MARIA Stop: 03/29/21 18:01 Last Admin: 03/29/21 18:07 Dose: 60 ml Documented by: Ondansetron HCl (Ondansetron 4 Mg/2 Ml Sdv) 4 mg IVPUSH ONETIME ONE Stop: 03/28/21 21:41 Last Admin: 03/28/21 22:06 Dose: 4 mg Documented by: Pantoprazole Sodium (Pantoprazole 40 Mg Vial) 40 mg IVPUSH ONETIME ONE Stop: 03/29/21 13:16 Last Admin: 03/29/21 13:49 Dose: 40 mg Documented by: - Exam Quality Assessment: Denies: Supplemental Oxygen General: Reports: Alert, Oriented, Cooperative, No Acute Distress HEENT: Reports: Pupils Equal, Pupils Reactive, EOMI, Mucous Membr. Moist/[place], Other Neck: Reports: Supple Lungs: Reports: Clear to Auscultation, Normal Respiratory Effort Cardiovascular: Reports: Regular Rate, Regular Rhythm GI/Abdominal Exam: Non-Tender, Distended, Other (Abdomen is firm). No: Normal Bowel Sounds, Guarding (Male) Exam: Deferred Rectal (Males) Exam: Deferred Back Exam: Reports: Normal Inspection, Full Range of Motion Extremities: Normal Inspection, Normal Range of Motion, Non-Tender, Normal Capillary Refill Skin: Reports: Warm, Dry, Intact Neurological: Reports: No New Focal Deficit Psy/Mental Status: Reports: Alert, Normal Affect, Normal Mood
[2021-03-30 16:38] VITALS: BP 154/77; PULSE 77
== END 2021-03-30 17:35 | DRG 389 ==
LOC: DL.ED 21:03 → DL.MS 03-29 02:35
PROVIDERS: ADMIT Pediatrics; ATTEND Internal Medicine
DX: K56.609 Unspecified intestinal obstruction, unspecified as to partial versus complete obstruction (principal); C79.51 Secondary malignant neoplasm of bone; N30.01 Acute cystitis with hematuria; D84.9 Immunodeficiency, unspecified; C61 Malignant neoplasm of prostate; N13.9 Obstructive and reflux uropathy, unspecified; H91.90 Unspecified hearing loss, unspecified ear; H54.7 Unspecified visual loss; E78.00 Pure hypercholesterolemia, unspecified; Z20.822 Contact with and (suspected) exposure to COVID-19; N18.9 Chronic kidney disease, unspecified; F41.9 Anxiety disorder, unspecified; C85.90 Non-Hodgkin lymphoma, unspecified, unspecified site; F32.9 Major depressive disorder, single episode, unspecified; D63.1 Anemia in chronic kidney disease; I12.9 Hypertensive chronic kidney disease with stage 1 through stage 4 chronic kidney disease, or unspecified chronic kidney disease; K56.7 Ileus, unspecified; R32 Unspecified urinary incontinence; E78.5 Hyperlipidemia, unspecified; K57.90 Diverticulosis of intestine, part unspecified, without perforation or abscess without bleeding; E87.6 Hypokalemia; E87.8 Other disorders of electrolyte and fluid balance, not elsewhere classified; Z28.82 Immunization not carried out because of caregiver refusal; Z88.0 Allergy status to penicillin; Z88.8 Allergy status to other drugs, medicaments and biological substances; Z79.899 Other long term (current) drug therapy; Z98.49 Cataract extraction status, unspecified eye; Z87.442 Personal history of urinary calculi; Z85.72 Personal history of non-Hodgkin lymphomas; Z87.891 Personal history of nicotine dependence; Z88.1 Allergy status to other antibiotic agents
CPT/HCPCS: 36415; 71045; 74018; 74177; 80053; 83605; 85025; 87040; J1170; J2405; J7030; Q9967; U0002; 43752; 81001; 83735; 85027; 85730; 96374; 96375; 99285-25; A9270-GY; C9113; J1650; J1940; J2270; J7042

== ENCOUNTER 2022-01-05 11:42 | Emergency (ER) | payer MEDICARE, OTHER ==
[2022-01-05 12:01] VITALS: BP 140/71; PULSE 60
[2022-01-05] MEDS ORDERED: HYDROmorphone 1 MG/ML Syringe IVPUSH ONE ×3 (12:14→13:55)
[2022-01-05] MEDS ORDERED: Ondansetron 4 MG/2 ML SDV IVPUSH ONE (12:15)
== END 2022-01-05 14:32 | disposition home or self-care (01) ==
LOC: DL.ED 11:42
DX: G89.3 Neoplasm related pain (acute) (chronic) (principal); E78.00 Pure hypercholesterolemia, unspecified; I12.9 Hypertensive chronic kidney disease with stage 1 through stage 4 chronic kidney disease, or unspecified chronic kidney disease; N18.30 Chronic kidney disease, stage 3 unspecified; Z88.1 Allergy status to other antibiotic agents; Z88.8 Allergy status to other drugs, medicaments and biological substances; Z79.899 Other long term (current) drug therapy
CPT/HCPCS: 96374; 96375; 96376; 99283; J1170; J2405; 99284